=== PATIENT | female | born 1960 | race Caucasian/White ===

== ENCOUNTER → 2017-08-24 07:49 | Outpatient (CLI) | payer OTHER, SELFPAY ==
[2017-08-30 10:15] LABS: HPV APTIMA, High Risk Negative (Negative)
== END ==
PROVIDERS: Family Provider Internal Medicine Infectious Disease; Visit Provider Nurse Practitioner Women's Health
DX: Z12.4 Encounter for screening for malignant neoplasm of cervix (principal)
CPT/HCPCS: 88175; G0145

== ENCOUNTER → 2017-09-07 09:14 | Outpatient (CLI) | payer OTHER, SELFPAY ==
--- NOTE | 2017-09-07 09:17 | BI_ITS ---
MAMMOGRAPHY - BILATERAL SCREENING REASON FOR EXAM: Female, 57 years old. Routine annual screening examination. PERTINENT HISTORY: Grandmother with breast cancer. TECHNIQUE: Digital bilateral breast edita (3D mammographic acquisition) in the CC and MLO projections. 2-D mediolateral oblique (MLO) and craniocaudad (CC) views of both breasts were obtained. CAD: Full Field Digital Mammography with Computer Added Detection was performed. COMPARISON: Comparison is made with prior ocular examination dated July 05, 2016. FINDINGS: Breast Composition: There are scattered areas of fibroglandular density. There are no dominant masses or suspicious calcifications. No other significant abnormalities are identified. There has been no significant change since the prior study. BI/SCREENING MAMM (CAD), BILAT IMPRESSION: Stable bilateral screening mammogram. Yearly follow-up mammogram recommended. (A) ASSESSMENT CATEGORY: BIRADS Category 1: Negative. A letter regarding these results will be sent to the patient by the facility within 30 days. Approximately 10% of breast cancers are not detected by mammography. A normal mammogram should not delay biopsy of a clinically suspicious abnormality. [id number] Electronically Signed: Rodrigo Alves MD at 10:54 EDT Tel [phone], Service support ,
== END ==
PROVIDERS: Family Provider Internal Medicine Infectious Disease; PCP Internal Medicine Infectious Disease; Visit Provider Obstetrics & Gynecology
DX: Z12.31 Encounter for screening mammogram for malignant neoplasm of breast (principal)
CPT/HCPCS: 77063; 77067

== ENCOUNTER → 2018-09-20 | Outpatient (CLI) | payer OTHER, SELFPAY ==
[2017-08-24 08:06] VITALS: BMI 37.5
--- NOTE | 2018-09-20 08:29 | BI_ITS ---
MAMMOGRAPHY - BILATERAL SCREENING 3-D TOMOSYNTHESIS REASON FOR EXAM: Female, 58 years old. Bilateral Screening 3-D tomosynthesis PERTINENT HISTORY: Grandmother with breast cancer.. TECHNIQUE: 2-D mammograms and 3-D Tomosynthesis of the breast (s) were performed. CAD was performed. COMPARISON: 09/07/2017 FINDINGS: The breast composition is composed of scattered fibroglandular density. Scattered benign calcifications are seen. No dense spiculated masses or suspicious microcalcifications are identified. No architectural distortion is identified. There is no skin thickening or retraction. There has been no significant change since the prior study. BI/SCREEN MAMM (CAD) W/MARKY BILAT IMPRESSION: No mammographic signs of malignancy. Routine yearly mammograms recommended. ASSESSMENT CATEGORY: BIRADS Category 2: Benign. A letter regarding these results will be sent to the patient by the facility within 30 days. FOLLOW UP RECOMMENDATION: Yearly follow up mammogram recommended. (A) Approximately 10% of breast cancers are not detected by mammography. A normal mammogram should not delay biopsy of a clinically suspicious abnormality. Electronically Signed: Mauricio Bates MD at 10:52 EDT , Service support ,
== END | disposition home or self-care (01) ==
PROVIDERS: Family Provider Internal Medicine Infectious Disease; PCP Internal Medicine Infectious Disease; Referring Provider Nurse Practitioner Women's Health; Visit Provider Nurse Practitioner Women's Health
DX: Z12.31 Encounter for screening mammogram for malignant neoplasm of breast (principal)
CPT/HCPCS: 77063; 77067

== ENCOUNTER → 2018-10-18 17:06 | Outpatient (CLI) | payer OTHER, SELFPAY ==
--- NOTE | 2018-10-18 | EMB_PTH ---
PATIENT: IMANI HASTINGS LOC: [facility] U#:[id number] AGE/SX: 64/F ROOM: RE10/18/[address]: JOSH Mccarthy : 1960 BED: DIS: SPEC #: [id number] RECD: 10/18/18 16:43 STATUS: ADRIEL JC #: [id number] YAEL: 10/18/18 00:[address]: Sunitha Guaman NP DEPT: SURGICAL PATHOLOGY RECD BY: Prakash Painter ENTERED: 10/22/18 08:26 SP TYPE: ENDOM BX/C JACOB DR: Dr. Jian Preston MD Tissues: Endometrium, NOS Procedures: Surgery Specimen Level IV HEADER OPERATION: Endometrial biopsy PRE-OP DIAGNOSIS: Endometrial biopsy TISSUE SUBMITTED: Endometrial biopsy MICROSCOPIC DIAGNOSIS Endometrium, biopsy: Fragments of proliferative endometrium. AM:acosta 10/23/18 COMMENT Clinical correlation is necessary. MICROSCOPIC DESCRIPTION Slides are reviewed. GROSS DESCRIPTION Received is one container labeled with the patient's name and not further designated. The specimen consists of multiple irregular fragments of light to dark sellers soft tissue that in aggregate measure 2.3 x 1 x 0.1 cm. The specimen is totally submitted in one cassette. / AM:acosta 10/22/18 TC:5 CPT: 40603
[2018-10-18 08:51] VITALS: BMI 38.2
== END ==
PROVIDERS: Family Provider Internal Medicine Infectious Disease; PCP Internal Medicine Infectious Disease; Referring Provider Nurse Practitioner Women's Health; Visit Provider Nurse Practitioner Women's Health
DX: N93.8 Other specified abnormal uterine and vaginal bleeding (principal)
CPT/HCPCS: 88305

== ENCOUNTER → 2019-11-19 08:12 | Outpatient (CLI) | payer OTHER, SELFPAY ==
[2018-10-18 08:51] VITALS: BMI 38.2
--- NOTE | 2019-11-19 08:13 | BI_ITS ---
MAMMOGRAPHY - BILATERAL SCREENING 3-D TOMOSYNTHESIS REASON FOR EXAM: Female, 59 years old. Routine screening PERTINENT HISTORY: BLAT SCREENING - FAM HX OF MAT GRANDMOTHER @ AGE 60''S and amp; PAT GRANDMOTHER @ AGE 60''S - NO PREV VALENTINO G''S - LT AXILLARY SKIN TAG MARKED - PT HAS LOST 36# SINCE LAST MAMM OF 2019 TECHNIQUE: 2-D mammograms and 3-D Tomosynthesis of the breast (s) were performed. CAD was performed. COMPARISON: 09/20/2018 FINDINGS: The breast composition is composed of scattered fibroglandular density. Scattered benign calcifications are seen. No dense spiculated masses or suspicious microcalcifications are identified. No architectural distortion is identified. There is no skin thickening or retraction. There has been no significant change since the prior study. BI/SCREEN MAMM (CAD) W/MARKY BILAT IMPRESSION: No mammographic signs of malignancy. Routine yearly mammograms recommended. ASSESSMENT CATEGORY: BIRADS Category 2: Benign. A letter regarding these results will be sent to the patient by the facility within 30 days. FOLLOW UP RECOMMENDATION: Yearly follow up mammogram recommended. (A) Approximately 10% of breast cancers are not detected by mammography. A normal mammogram should not delay biopsy of a clinically suspicious abnormality. Electronically Signed: Mauricio Bates MD at 9:24 EDT , Service support ,
== END ==
PROVIDERS: PCP Internal Medicine Infectious Disease; Referring Provider Internal Medicine Infectious Disease; Visit Provider Internal Medicine Infectious Disease
DX: Z12.31 Encounter for screening mammogram for malignant neoplasm of breast (principal)
CPT/HCPCS: 77063; 77067

== ENCOUNTER → 2020-11-23 15:44 | Outpatient (CLI) | payer OTHER, SELFPAY ==
[2019-11-19 08:57] VITALS: BMI 38.2
[2020-11-23 15:22] VITALS: BMI 37.1
--- NOTE | 2020-11-23 15:46 | BI_ITS ---
MAMMOGRAPHY - BILATERAL SCREENING REASON FOR EXAM: Female, 60 years old. Routine annual screening examination. PERTINENT HISTORY: Grandmothers with breast cancer. TECHNIQUE: Digital bilateral breast marky (3D mammographic acquisition) in the CC and MLO projections. 2-D mediolateral oblique (MLO) and craniocaudad (CC) views of both breasts were obtained. CAD: Full Field Digital Mammography with Computer Added Detection was performed. COMPARISON: Comparison is made with prior examination dated 11/19/2019 and 09/20/2018. FINDINGS: Breast Composition: There are scattered areas of fibroglandular density. There are no dominant masses or suspicious calcifications. Stable small benign-appearing bilateral axillary lymph nodes. No other significant abnormalities are identified. There has been no significant change since the prior study. BI/SCRN MAMM (CAD)W/MARKY BILAT IMPRESSION: Stable bilateral screening mammogram. Yearly follow-up mammogram recommended. (A) ASSESSMENT CATEGORY: BIRADS Category 2: Benign. A letter regarding these results will be sent to the patient by the facility within 30 days. Approximately 10% of breast cancers are not detected by mammography. A normal mammogram should not delay biopsy of a clinically suspicious abnormality. [id number] Electronically Signed: Rodrigo Alves MD at 8:06 EDT , Service support ,
== END ==
PROVIDERS: Referring Provider Nurse Practitioner Women's Health; Visit Provider Nurse Practitioner Women's Health
DX: Z12.31 Encounter for screening mammogram for malignant neoplasm of breast (principal)
CPT/HCPCS: 77063; 77067

== ENCOUNTER → 2021-11-30 | Outpatient (CLI) | payer OTHER, SELFPAY ==
--- NOTE | 2021-11-30 08:17 | BI_ITS ---
MAMMOGRAPHY - BILATERAL SCREENING REASON FOR EXAM: Female, 61 years old. Routine annual screening examination. PERTINENT HISTORY: Grandmothers with breast cancer. TECHNIQUE: Digital bilateral breast marky (3D mammographic acquisition) in the CC and MLO projections. 2-D mediolateral oblique (MLO) and craniocaudad (CC) views of both breasts were obtained. CAD: Full Field Digital Mammography with Computer Added Detection was performed. COMPARISON: Comparison is made with prior study dated 11/23/2020 and 11/19/2019. FINDINGS: Breast Composition: There are scattered areas of fibroglandular density. There are no dominant masses or suspicious calcifications. Stable small benign-appearing bilateral axillary lymph nodes. No other significant abnormalities are identified. There has been no significant change since the prior study. BI/SCRN MAMM (CAD)W/MARKY BILAT IMPRESSION: Stable bilateral screening mammogram. Yearly follow-up mammogram recommended. (A) ASSESSMENT CATEGORY: BIRADS Category 2: Benign. A letter regarding these results will be sent to the patient by the facility within 30 days. Approximately 10% of breast cancers are not detected by mammography. A normal mammogram should not delay biopsy of a clinically suspicious abnormality. [id number] Electronically Signed: Rodrigo Alves MD at 8:56 EDT ,
== END | disposition home or self-care (01) ==
LOC: OPBI 08:16
PROVIDERS: PCP Internal Medicine Infectious Disease; Referring Provider Obstetrics & Gynecology; Visit Provider Obstetrics & Gynecology
DX: Z12.31 Encounter for screening mammogram for malignant neoplasm of breast (principal)
CPT/HCPCS: 77063; 77067

== ENCOUNTER → 2022-12-06 | Outpatient (CLI) | payer OTHER, SELFPAY ==
--- NOTE | 2022-12-06 09:50 | BI_ITS ---
MAMMOGRAPHY - BILATERAL SCREENING REASON FOR EXAM: Female, 62 years old. Routine annual screening examination. PERTINENT HISTORY: Grandmothers with breast cancer. TECHNIQUE: Digital bilateral breast marky (3D mammographic acquisition) in the CC and MLO projections. 2-D mediolateral oblique (MLO) and craniocaudad (CC) views of both breasts were obtained. CAD: Full Field Digital Mammography with Computer Added Detection was performed. COMPARISON: Comparison is made with prior study dated November 30, 2021 and November 23, 2020. FINDINGS: Breast Composition: There are scattered areas of fibroglandular density. There are no dominant masses or suspicious calcifications. Stable small benign-appearing bilateral axillary lymph nodes. No other significant abnormalities are identified. There has been no significant change since the prior study. BI/SCRN MAMM (CAD)W/MARKY BILAT IMPRESSION: Stable bilateral screening mammogram. Yearly follow-up mammogram recommended. (A) ASSESSMENT CATEGORY: BIRADS Category 2: Benign. A letter regarding these results will be sent to the patient by the facility within 30 days. Approximately 10% of breast cancers are not detected by mammography. A normal mammogram should not delay biopsy of a clinically suspicious abnormality. [id number] Electronically Signed: Rodrigo Alves MD at 10:51 EDT ,
[2022-12-06 10:53] LABS: Estradiol 15.6 pg/mL; Follicle Stimulating Hormone 29.4 mIU/mL
[2022-12-08 22:07] LABS: HPV APTIMA, High Risk Negative (Negative)
== END | disposition home or self-care (01) ==
PROVIDERS: PCP Internal Medicine Infectious Disease; Referring Provider Nurse Practitioner Women's Health; Visit Provider Nurse Practitioner Women's Health
DX: Z12.31 Encounter for screening mammogram for malignant neoplasm of breast (principal); Z80.3 Family history of malignant neoplasm of breast
CPT/HCPCS: 36415; 77063; 77067; 82670; 83001; 87624; 88175; G0145

== ENCOUNTER → 2023-12-13 | Outpatient (CLI) | payer OTHER, SELFPAY ==
--- NOTE | 2023-12-13 09:08 | BI_ITS ---
MAMMOGRAPHY - BILATERAL SCREENING REASON FOR EXAM: Female, 63 years old. Routine annual screening examination. PERTINENT HISTORY: Grandmothers with breast cancer. TECHNIQUE: Digital bilateral breast marky (3D mammographic acquisition) in the CC and MLO projections. 2-D mediolateral oblique (MLO) and craniocaudad (CC) views of both breasts were obtained. CAD: Full Field Digital Mammography with Computer Added Detection was performed. COMPARISON: Comparison is made with prior study dated December 06, 2022 and November 30, 2021. FINDINGS: Breast Composition: There are scattered areas of fibroglandular density. There are no dominant masses or suspicious calcifications. Stable small benign-appearing bilateral axillary lymph nodes. No other significant abnormalities are identified. There has been no significant change since the prior study. BI/SCRN MAMM (CAD)W/MARKY BILAT IMPRESSION: Stable bilateral screening mammogram. Yearly follow-up mammogram recommended. (A) ASSESSMENT CATEGORY: BIRADS Category 2: Benign. A letter regarding these results will be sent to the patient by the facility within 30 days. Approximately 10% of breast cancers are not detected by mammography. A normal mammogram should not delay biopsy of a clinically suspicious abnormality. [id number] Electronically Signed: Rodrigo Alves MD at 10:35 EDT ,
[2023-12-13 15:36] LABS: Estradiol 14.8 pg/mL; Follicle Stimulating Hormone 31.1 mIU/mL
== END | disposition home or self-care (01) ==
PROVIDERS: Nurse Practitioner Family; PCP Internal Medicine Infectious Disease; Referring Provider Nurse Practitioner Women's Health; Visit Provider Nurse Practitioner Women's Health
DX: Z12.31 Encounter for screening mammogram for malignant neoplasm of breast (principal); Z80.3 Family history of malignant neoplasm of breast
CPT/HCPCS: 36415; 77063; 77067; 82670; 83001

== ENCOUNTER 2024-02-12 10:24 | Day surgery (SDC) | payer OTHER, SELFPAY ==
[2024-02-12] VITALS (9 sets, daily range): BP systolic 119–178; BP diastolic 61–90; PULSE 53–71; RESP 16–20; TEMP 36.1–36.8; O2SAT 96–99; BMI 35.6
--- NOTE | 2024-02-12 | EMB_PTH ---
PATIENT: IMANI HASTINGS LOC: [facility] [place] U[place][id number] AGE/SX: 63/F ROOM: RE02/12/[address]: Dr. Jaymie Feliciano MD : 1960 BED: DIS: 02/12/2024 SPEC #: [id number] RECD: 02/12/24 14:16 STATUS: ADRIEL RECheri #: [id number] YAEL: 02/12/24 00:[address]: Jaymie Feliciano DEPT: SURGICAL PATHOLOGY RECD BY: Xander Marks ENTERED: 02/12/24 14:17 SP TYPE: ENDOM BX/C JACOB DR: Dr. Jian Preston MD Tissues: Endometrium, NOS Procedures: Surgery Specimen Level IV HEADER OPERATION: Hysterectomy, D&C PRE-OP DIAGNOSIS: History of postmenopausal bleeding TISSUE SUBMITTED: Endometrial curettings MICROSCOPIC DIAGNOSIS Endometrial curettings: Simple endometrial hyperplasia without atypia. Fragments of myometrium. See comment. SJ.mr 02/13/2024 COMMENT Polypoid fragments of endometrial tissue are noted, may represent fragments of polyp, endometrial hyperplasia is noted most in these fragments. The specimen predominantly consists of fragments of myometrium. Clinical correlation and appropriate follow up are necessary. Case has been reviewed in consultation with Dr. Osborne who concurs with the above diagnosis. IDC:AM MICROSCOPIC DESCRIPTION Slides are reviewed. GROSS DESCRIPTION Received in fixative is one container labeled with the patient's name and designated Endometrial curettings. The specimen consists of multiple fragments of sellers soft tissue measuring in aggregate 4.0 x 3.0 x 0.3cm. The entire specimen is submitted in two cassettes. 02/12/2024 TC:5 CPT:92079
--- NOTE | 2024-02-12 06:24 | HP.PCM_ITS ---
History and Physical Date of Admission: 02/12/24 Intake Vital Signs 12/13/2407:31 12/19/2411:01 01/24/2415:02 Height 5 ft 4 in 5 ft 4 in 5 ft 4 in Weight: 209 lb BMI 35.9 BP 147/71 H Blood Pressure Location Rt brachial Position Sitting Intake Visit Reasons: Surgical consult per Is patient in pain?: No Feel stressed/tense/nervous/anxious/difficulty sleeping: to some extent (works 2 jobs) Allergies No Known Allergies Allergy (Verified 01/25/24 15:02) Medications ?Medication ?Instructions ?Recorded ?Confirmed ?Type aspirin 81 mg chewable tablet PO 08/24/17 01/25/24 History calcium citrate 250 mg PO ONCE 08/24/17 01/25/24 History coenzyme Q10 100 mg capsule 100 mg PO QDAY 08/24/17 01/25/24 History labetalol 200 mg tablet 200 mg PO BID 08/24/17 01/25/24 History lisinopril 5 mg tablet 5 mg PO QDAY 08/24/17 01/25/24 History multivitamin 1 cap PO QAM 08/24/17 01/25/24 History pravastatin 40 mg tablet 40 mg PO QHS 08/24/17 01/25/24 History norethindrone acetate 5 mg tablet 5 mg PO .COMPLEX #10 tabs 12/13/23 01/25/24 Rx Patient : No : No PFSH Medical History (Updated 01/26/24 @ 12:[address] Jaymie Feliciano MD) Hyperlipidemia Hypertension Surgical History (Updated 01/25/24 @ 15:06 by Sunitha Morris) H/O cataract removal with insertion of prosthetic lens H/O: S/P dilation and curettage S/P cholecystectomy Family History Father HypertensionSister Hypertension AneurysmMother Hyperlipidemia Social History (Updated 01/25/24 @ 15:08 by Sunitha Morris) current occupational status: employed current occupation: [employer] Smoking Status: Former smoker alcohol intake: current details: occasionally substance use type: does not use caffeine: Yes what type of physical activity do you participate in: none seatbelt use: always do you feel safe at home: Yes additional social history: - [employer] Patient works [employer] HPI Surgical consult per Details: IMANI HASTINGS is a 63 year old who presents for persistent postmenopausal bleeidng every three months she has a bleed in repsonse to aygestin, never gone a year without menses. she isn't having any bleeding or discharge right now she is doing well no complaints. she denies any pelvic pain or pressure. Female Reproductive History Menopausal Symptoms: No night sweats History 3 Elective abortions Hx Para 2 Spontaneous abortions 1 Hx # Term Pregnancies Ectopic pregnancies Hx # Pregnancies Multiple births 1 # of living children Past Pregnancies Del. Date Name GA/Weeks Outcome Route Bth Weight Infant Gen Labor Lgth Anesthesia Del Locatn Provider FOB Unknown Apoorva and Becki-2004 Unknown 42 weeks jhonathan stillbirth Delivery Date: Last Updated by: Kari Choe First child was stillborn ROS Const Constitutional: Denies fatigue, night sweats, weight gain or weight loss ENT ENT: Reports system reviewed and no additional complaints, except as documented Cardio Card: Denies chest pain Resp Resp: Denies cough or dyspnea GI GI: Reports as per HPI; Denies abdominal pain, constipation, nausea or vomiting : Denies nipple discharge, urinary frequency, urinary incontinence, urinary hesitancy, urinary urgency, vaginal discharge, vaginal dryness, vaginal odor or vaginal pruritus Musc Musc: Denies arthralgias, back pain or muscle weakness Skin Skin/Breast: Denies alopecia, change in hair, dry skin, breast mass, breast pain, breast skin changes or nipple discharge Neuro Neuro: Reports system reviewed and no additional complaints, except as docume nted Psych Psych: Reports system reviewed and no additional complaints, except as documented Endo Endo: Denies cold intolerance, excessive sweating, heat intolerance or polydipsia Khris/Lymph Hematologic/Lymphatic: Denies easy bleeding, Denies easy bruising and Denies lymphadenopathy Exam Const General: cooperative, healthy appearing, comfortable and no acute distress Orientation: alert [facility] Head: normal to inspection and normocephalic Ears: hearing grossly normal bilaterally and external ears normal Nose: external nose normal and nares normal Face and sinus: normal facial exam Neck Neck: normal visual inspection and no lymphadenopathy Thyroid: thyroid normal Chest Chest palpation & inspection: normal inspection of the chest Resp Effort & Inspection: normal respiratory effort Cardio Rate: regular rate GI Inspection: normal to inspection and non-distended Palpation: soft and no hepatosplenomegaly Musc Other: gross motor intact no deficits, full bilateral strength Skin General: no rashes or lesions noted Neuro General: patient alert, patient awake, moves all extremities and no focal motor deficits Motor: muscle tone normal throughout Extrem General: normal to inspection and no pedal edema Psych Appearance: grossly normal Mental Status: mental status grossly normal Affect: normal affect Speech and Movement: speech and movement normal Coding Level of Care Code Off vis,est,level 4 Diagnoses History of postmenopausal bleeding Z87.42 Assessment and Plan Assessment and Plan (1) History of postmenopausal bleeding: Status: Acute Comment: Has been taking Aygestin every 3 months/stop. 2019 EMB prolif lining. FSH Estradiol non PM in 2022. recommend d and c hsyteroscopy Plan After discussing the patient's diagnosis and treatment plan options, patient wishes to proceed with surgical management. I have discussed with the patient the risks, benefits, and alternatives of the procedure which include but are not limited to risks of anesthesia, bleeding, infection, possible damage to bowel, bladder, or surrounding vasculature which could lead to additional surgery to evaluate any complications. Patient agrees to procedure and wishes to proceed. ACOG/uptodate references given for additional information regarding procedure. UPDATE- I have seen the patient and performed any clinically relevant updates to the history and physical exam. Jaymie Feliciano MD
[2024-02-12] MEDS: Lactated Ringers 1,000 ML 15 ML IV (10:54)
--- NOTE | 2024-02-12 11:34 | PCM.PRE.AN2 ---
ASA Classification* ASA Classification ASA Classification: 2 Assessment & Plan Anesthesia* Anesthesia Assessment Anesthesia Assessment: Discussed sedation and/or anesthesia options, risks, benefits, and alternatives with patient/parents/legal guardian/POA. Questions invited. The patient/parents/legal guardian/POA seems to understand and agrees to proceed with anesthesia plan. Reviewed the physical assessment, medical history, allergy history and patient home medications list prior to surgery/procedure/anesthetic and documented any changes. Performed airway and anesthesia risk assessments. Anesthesia Type Anesthesia Type: MAC History Source History Obtained from:: Patient and Chart Anesthesia Focused Assessment* Temperature: 98.2 F Pulse Rate: 55 Blood Pressure: 175/85 Respiratory Rate: 16 Pulse Ox: 98 Oxygen Delivery Method: Room Air Airway Assessment Mouth opens: >3 cm Mallampati Score: I Teeth Condition: Missing (Patient has couple missing teeth. 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 When Was Last Pacemaker Check QUESTION #4 FULL TEXT: You/Your Family Experience fever (hyperthermia) with Anesthesia Last Oral Intake Last Oral intake: Last Oral Intake NPO since 06:00 02/12/24 10:45 Meds taken in AM with sips of Yes 02/12/24 10:45 water? Meds patient instructed to LABETALOL, LISINOPRIL 02/12/24 10:45 take am of surgery Any additional information?: Yes NPO since: 06:00 (Patient had coffee at 6 AM.) PONV PONV - pneumatic systems operator: PONV - pneumatic systems operator Female Yes 02/06/24 08:20 HX of Motion Sickness No 02/06/24 08:20 HX of N/V After Surgery No 02/06/24 08:20 Non-Smoker Yes 02/06/24 08:20 Duration of Surgery greater No 02/06/24 08:20 than 60 minutes Number of Risk Factors 2 02/06/24 08:20 PONV Score Moderate Risk 02/06/24 08:20 Height & Weight Height & Weight: Anesthesia: Height & Weight Height 5 ft 4 in 02/12/24 10:45 Weight: 94.3 kg 02/12/24 10:45 Body Mass Index (BMI) 35.6 02/12/24 10:45 Respiratory Assessment Respiratory Assessment - pneumatic systems operator: Respiratory Tract Infection Hx - pneumatic systems operator Hx Respiratory Tract Infection No 02/06/24 08:20 STOP Sleep Apnea STOP Sleep Apnea - pneumatic systems operator: STOP Sleep Apnea - pneumatic systems operator Hx Hypertension Yes: CONTROLLED WITH MEDS 02/06/24 08:20 Hx Sleep Apnea No 02/06/24 08:20 CPAP BIPAP Do you snore loudly (louder Yes 02/06/24 08:20 than talking or can be heard Do you often feel tired/ Yes 02/06/24 08:20 fatigued/ sleepy during daytime? Has anyone observed you stop No 02/06/24 08:20 breathing during sleep? STOP Results Positive 02/06/24 08:20 QUESTION #5 FULL TEXT : Do you snore loudly (louder than talking or can be heard through closed doors)? Tobacco Use History Tobacco Use History - pneumatic systems operator: Tobacco Use History - pneumatic systems operator Tobacco Use Smoking Status Former smoker 02/06/24 08:20 Hx Tobacco Use No 02/06/24 08:20 Years Smoking Packs Smoked per Day Smoking Cessation Date was No - quit smoking greater 02/06/24 08:20 within the last 15 years than 15 years ago Hx Smoking Cessation Date 05/28/86 02/06/24 08:20 Hx Smoking Cessation No 02/06/24 08:20 Counseling Hematologic Medial History Hematologic Hx - pneumatic systems operator: Hematologic Medical Hx - documentation coordinator Hx of Blood Transfusion No 02/06/24 08:20 Hx of Transfusion in last 3 No 02/06/24 08:20 Months Date of Last Transfusion (if within last 3 months) Ever experience any problems No 02/06/24 08:20 with transfusion(s)? Specify any problems Hx of Preganancy in last 3 No 02/06/24 08:20 Months Nurse Filling Out Transfusion DSCHRIBER 02/06/24 08:20 & Questions: Date: 02/06/24 02/06/24 08:20 Time: 08:22 02/06/24 08:20 Patient unable to answer at this time (ie. confused, unrespo /Reproduction History /Reproductive History - pneumatic systems operator: /Reproductive Hx- pneumatic systems operator Hx Now No 02/06/24 08:20 Gestational Age (in weeks): EDC: Hx Hx Para Hx Section SAB No 02/06/24 08:20 Active Medications Active Medications: Current Medications Generic Name Dose Route Start Last Admin Trade Name Freq PRN Reason Stop Dose Admin Lactated Ringer's 1,000 mls @ 15 mls/hr 02/12/24 10:45 02/12/24 10:54 IV 15 mls/hr .Q48H SHARIFA Administration PFSH Medical History Wears glasses Post-menopausal Alcohol use Restless legs Migraine headache History of diverticulitis Heartburn Former smoker History of stress test History of irregular heartbeat Hyperlipidemia Hypertension Home Medications ?Medication ?Instructions ?Recorded ?Last Taken ?Type aspirin 81 mg chewable tablet 1 tab PO DAILY 08/24/17 02/11/24 History calcium citrate 250 mg PO DAILY 08/24/17 02/11/24 History coenzyme Q10 100 mg capsule 100 mg PO QDAY 08/24/17 02/11/24 History labetalol 200 mg tablet 200 mg PO BID 08/24/17 02/12/24 06:00 History lisinopril 5 mg tablet 5 mg PO QDAY 08/24/17 02/12/24 06:00 History multivitamin 1 cap PO QAM 08/24/17 02/11/24 History pravastatin 40 mg tablet 40 mg PO QHS 08/24/17 02/11/24 History cyclosporine 0.05 % eye drops in a 1 drp ophthalmic (eye) BID 02/06/24 02/11/24 History dropperette peg 400-propylene glycol (PF) 0.4 1 drp EACH EYE DAILY PRN dry eye(s) 02/06/24 02/11/24 History %-0.3 % eye drops in a dropperette (Systane (PF)) Allergy/AdvReac Type Severity Reaction Status Date / Time No Known Allergies Allergy Verified 02/12/24 10:46 Family History Father Hypertension Sister Hypertension Aneurysm Mother Hyperlipidemia Surgical History Hx of colonoscopy Hx of right cataract extraction Hx of left cataract extraction H/O: S/P dilation and curettage S/P cholecystectomy Social History current occupational status: employed current occupation: [employer] Smoking Status: Former smoker alcohol intake: current details: occasionally substance use type: does not use caffeine: Yes what type of physical activity do you participate in: none seatbelt use: always do you feel safe at home: Yes additional social history: - [employer] Patient works [employer] Review of Systems (Anesthesia) ROS Narrative System reviewed and no additional complaints, except as documented.
[2024-02-12] MEDS: Lidocaine 2% (20 ml mdv) 20 ML Vial (12:52)
--- NOTE | 2024-02-12 13:05 | OP.PCM_ITS ---
Problems Associated Problem List Diagnoses (1) History of postmenopausal bleeding: Report of Operation Date of Procedure: 02/12/24 Pre-Operative Diagnosis: see problem list Post-Operative Diagnosis: same Surgery/Procedure Performed:: D&C hysteroscopy using symphion Surgeon: Jaymie Feliciano faculty i on call medical assistant: None Type of Anesthesia: Local MAC Special Medications: none Specimen's removed: EMC, polyp Drains: none Estimated Blood Loss (mL): 50 Fluids Replaced: crystalloid Description of Procedure: Patient was prepped and draped in a normal sterile fashion under MAC anesthesia. A weighted speculum was placed in the vagina and the anterior lip of the cervix was grasped with a single-tooth tenaculum. A paracervical block was placed with 1% lidocaine. Cervix was progressively dilated to allow passage of a 5 mm hysteroscope. The lining was fully visualized and noted to have no gross abnormalities . Uterine sounded to 9 cm. Using the symphion device, Direct visual curettage was performed using the device , and all specimens were sent to pathology. All instruments were removed from the vagina and excellent hemostasis was noted. Patient was awoken and taken to recovery in stable condi tion. Grafts/Implants Used: none Procedure Start Time: 12:50 Procedure Stop Time: 13:02 Complications none Admit VTE Documentation VTE Present on Admission: No VTE Mechan Device Prophylaxis: SCD's Multi Select Codes Urinary/Genital Urinary/Genital CPT Codes: 70016 Hysteroscopy,EMC, Polypectomy
--- NOTE | 2024-02-12 13:06 | PCM.DC ---
Discharge Instructions Diet Discharge Diet: No restrictions Activity Discharge Activity: Return to Normal Activity, May Shower and May Take a Tub Bath (after 1 week) May resume sexual activity in: 1-2 weeks Weight Bearing Status: Weight bearing as tolerated Lifting Restrictions: none Dressing / Incision Call your doctor if you observe: Fever of 101 or Higher, Using more than 1 pad per hour, Shortness of breath and Uncontrolled pain Follow Up Care Please Follow Up With: Jaymie Feliciano MD When: Call [phone] to schedule appointment. Test Results: Test results from this visit will be discussed in further detail at your follow-up appointment, if applicable. Discharge Plan Admission Attending Provider: Jaymie Feliciano Primary Care Provider: Jian Preston Instructions Print Language: Sinhala Discharge Orders/Prescriptions Prescriptions: No Action labetalol 200 mg tablet 200 mg PO BID lisinopril 5 mg tablet 5 mg PO QDAY pravastatin 40 mg tablet 40 mg PO QHS multivitamin capsule 1 cap PO QAM calcium citrate 250 mg calcium tablet 250 mg PO DAILY aspirin 81 mg tablet,chewable 1 tab PO DAILY coenzyme Q10 100 mg capsule 100 mg PO QDAY cyclosporine 0.05 % dropperette 1 drp ophthalmic (eye) BID Systane (PF) 0.4-0.3 % dropperette 1 drp EACH EYE DAILY PRN (Reason: dry eye(s)) Referrals / Follow Up: Jian Preston MD [Primary Care Provider] - Disposition Disposition (needs filled in before D/C Order can be placed): Home, Self Care
--- NOTE | 2024-02-12 13:13 | PCM.POST.ANE ---
Anesthesia: Postop Eval I Current Vital Signs Temperature: 97.1 F Pulse Rate: 71 Blood Pressure: 119/61 Respiratory Rate: 20 Pulse Ox: 96 Oxygen Delivery Method: Room Air Assessment Airway patent: Yes Spontaneous unlabored respirations: Yes Mental status: Awake nausea: No Vomiting: No Anesthesia Complication: No Fluid Hydration Crystalloid volume administer (ml): 500 Total IV fluid infused: 500 Progress Note Anesthesia document: Postop Eval 1 completed: Yes
--- NOTE | 2024-02-12 17:36 | POSTOPAN2_ITS ---
Anesthesia Postop Eval I Sum Postop Eval Completion status Anesthesia document: Postop Eval 1 completed: Yes Anesthesia Postop Eval I Summary Anesthesia Postop Eval I Summary: Anesthesia Postop Eval I: Assessment Summary Airway patent Yes 02/12/24 13:14 [email or web address] Spontaneous unlabored Yes 02/12/24 13:14 [email or web address] respirations Mental status Awake 02/12/24 13:14 [email or web address] nausea No 02/12/24 13:14 [email or web address] Vomiting No 02/12/24 13:14 [email or web address] Anesthesia Postop Eval I: Fluid Summary Crystalloid volume administer 500 02/12/24 13:14 [email or web address] (ml) Colloids volume administered ( ml) Blood Product volume administered (ml) Total IV fluid infused 500 02/12/24 13:14 [email or web address] Anesthesia Postop Eval I: Summary Notes Anesthesia Complication No 02/12/24 13:14 [email or web address] Anesthesia Complication Comment: Post-operative progress note Anesthesia: Postop Eval II Evaluation Mental status: Awake and Calm Pain Level: 1 nausea: No Vomiting: No Complications Anesthesia Complication: No
--- NOTE | 2024-02-12 17:36 | PCM.POSTANE2 ---
Anesthesia Postop Eval I Sum Postop Eval Completion status Anesthesia document: Postop Eval 1 completed: Yes Anesthesia Postop Eval I Summary Anesthesia Postop Eval I Summary: Anesthesia Postop Eval I: Assessment Summary Airway patent Yes 02/12/24 13:14 MUSEUM EXHIBIT [email or web address] Spontaneous unlabored Yes 02/12/24 13:14 MUSEUM EXHIBIT [email or web address] respirations Mental status Awake 02/12/24 13:14 MUSEUM EXHIBIT [email or web address] nausea No 02/12/24 13:14 MUSEUM EXHIBIT [email or web address] Vomiting No 02/12/24 13:14 MUSEUM EXHIBIT [email or web address] Anesthesia Postop Eval I: Fluid Summary Crystalloid volume administer 500 02/12/24 13:14 MUSEUM EXHIBIT TECHNICIAN.JDEF (ml) Colloids volume administered ( ml) Blood Product volume administered (ml) Total IV fluid infused 500 02/12/24 13:14 MUSEUM EXHIBIT [email or web address] Anesthesia Postop Eval I: Summary Notes Anesthesia Complication No 02/12/24 13:14 MUSEUM EXHIBIT [email or web address] Anesthesia Complication Comment: Post-operative progress note Anesthesia: Postop Eval II Evaluation Mental status: Awake and Calm Pain Level: 1 nausea: No Vomiting: No Complications Anesthesia Complication: No
== END 2024-02-12 14:05 | disposition home or self-care (01) ==
LOC: SDC 10:28 → AC 10:30
PROVIDERS: PCP Internal Medicine Infectious Disease; Referring Provider Obstetrics & Gynecology; Visit Provider Obstetrics & Gynecology
PROC: 0UB98ZZ Excision of Uterus, Via Natural or Artificial Opening Endoscopic (ICD-10-PCS; CPT 58558; principal; 2024-02-12 11:40)
DX: N85.01 Benign endometrial hyperplasia (principal); I10 Essential (primary) hypertension; E78.5 Hyperlipidemia, unspecified; Z87.891 Personal history of nicotine dependence; Z87.42 Personal history of other diseases of the female genital tract; Z87.19 Personal history of other diseases of the digestive system
CPT/HCPCS: 58558; 00952; 88305; J7120

== ENCOUNTER → 2024-09-01 | Outpatient (CLI) | payer OTHER, SELFPAY ==
--- NOTE | 2024-09-01 15:50 | EMB_PTH ---
PATIENT: IMANI HASTINGS [facility]: [facility] U#:[id number] AGE/SX: 64/F ROOM: RE09/01/[address]: Dr. Jaymie Feliciano MD : 1960 BED: DIS: 09/01/2024 SPEC #: [id number] RECD: 09/02/24 10:28 STATUS: ADRIEL RECheri #: [id number] YAEL: 09/01/24 15:[address]: Jaymie Feliciano DEPT: SURGICAL PATHOLOGY RECD BY: Raul Randall ENTERED: 09/02/24 10:28 SP TYPE: ENDOM BX/C JACOB DR: Dr. Jian Preston MD Tissues: A - Endometrium, NOS Procedures: Surgery Specimen Level IV HEADER OPERATION: Endometrial biopsy PRE-OP DIAGNOSIS: Simple endometrial hyperplasia without atypia TISSUE SUBMITTED: A- Endometrial tissue MICROSCOPIC DIAGNOSIS A. Uterus, endometrial tissue, biopsy: * Fragments of inactive endometrium with extensive progestin effect. MICROSCOPIC DESCRIPTION Slides are reviewed. GROSS DESCRIPTION A. Received in formalin in a container labeled with the patient's name, date of , and with the accompanying paperwork indicating, endometrial tissue are multiple red-sellers fragments of soft tissue admixed with blood and mucus measuring 1.2 x 0.8 x 0.2 cm in aggregate. Submitted in toto in A1. [facility] 09-02-2024 CPT:[id number]
== END | disposition home or self-care (01) ==
PROVIDERS: PCP Internal Medicine Infectious Disease; Visit Provider Obstetrics & Gynecology
DX: N85.00 Endometrial hyperplasia, unspecified (principal)
CPT/HCPCS: 88305

== ENCOUNTER → 2024-12-17 | Outpatient (CLI) | payer OTHER, SELFPAY ==
--- NOTE | 2024-12-17 13:45 | BI_ITS ---
EXAM: SCRN MAMM (CAD)W/MARKY BILAT DATE: 12/17/2024 CLINICAL HISTORY: F, Age 64 y/o , BREAST CANCER SCREENING TECHNIQUE: SCRN MAMM (CAD)W/MARKY BILAT COMPARISON: Prior exam(s) dated 12/13/2023, 12/06/2022, 11/30/2021. FINDINGS: TISSUE DENSITY: There are scattered areas of fibroglandular density. Bilateral Breast Mammographic Findings: No significant masses, calcifications or other abnormalities are identified. BI/SCRN MAMM (CAD)W/MARKY BILAT IMPRESSION: There is no mammographic evidence of malignancy. OVERALL FINAL ASSESSMENT BI-RADS 1: NEGATIVE. RECOMMENDATION: Routine annual follow-up in 1 Year A letter with findings and recommendations will be mailed to the patient. Reading Location: [id number]
--- OUTSIDE RECORDS SUMMARY | 2024-12-17 20:00 | XMS RPT_ITS | CCD ---
Author Organization [facility] Care Team Providers Care Drum Straightener Name Role Phone Rowena METER TESTER PRIMARY, METER TESTER PRIMARY-C Sunitha Attending Provider Dr. Rosetta Bills Primary Care Provider Dr. Rosetta Bills Referring Provider Dr. Rosetta Bills Primary Care Provider [phone] Dr. Rosetta Bills Referring Provider [phone] Rowena METER TESTER PRIMARY, METER TESTER PRIMARY-C Sunitha Attending Provider [phone] ROBBIE, MOSES PA%C Primary Care Unavailable ROBBIE, MOSES PA%C Attending Unavailable ROBBIE, MOSES PA%C Admitting Unavailable ROSETTA BILLS MD Consulting Unavailable PROVIDER, UNKNOWN Consulting Unavailable PROVIDER, UNKNOWN Consulting Unavailable PROVIDER, UNKNOWN Consulting Unavailable ROBBIE, MOSES PA%C Primary Care Unavailable ROBBIE, MOSES PA%C Attending Unavailable ROBBIE, MOSES PA%C Admitting Unavailable ROSETTA BILLS MD Consulting Unavailable PROVIDER, UNKNOWN Consulting Unavailable PROVIDER, UNKNOWN Consulting Unavailable PROVIDER, UNKNOWN Consulting Unavailable ROSETTA BILLS MD Consulting Unavailable ROSETTA BILLS MD Attending Unavailable ROSETTA BILLS MD Admitting Unavailable ROSETTA BILLS MD Primary Care Unavailable PROVIDER, UNKNOWN Consulting Unavailable PROVIDER, UNKNOWN Consulting Unavailable PROVIDER, UNKNOWN Consulting Unavailable ROSETTA BILLS MD Consulting Unavailable ROBBIE, MOSES PA%C Admitting Unavailable ROBBIE, MOSES PA%C Primary Care Unavailable ROBBIE, MOSES PA%C Attending Unavailable PROVIDER, UNKNOWN Consulting Unavailable PROVIDER, UNKNOWN Consulting Unavailable PROVIDER, UNKNOWN Consulting Unavailable Mohan BAKER, Dr. Villar Primary Care Provider Dr. Rosetta Bills MD Referring Provider Jodie BAKERDr. Coon Attending Provider Jaymie Feliciano Referring Unavailable Omran, Yasser Primary Care Unavailable Jaymie Feliciano Attending Unavailable Jaymie Feliciano Attending Unavailable Omran, Yasser Primary Care Unavailable Rita Leary Referring Unavailable Omran, Yasser Primary Care Unavailable Rita Leary Attending Unavailable Omran, Yasser Referring Unavailable Omran, Yasser Primary Care Unavailable Jaymie Feliciano Attending Unavailable Omran, Yasser Referring Unavailable Omran, Yasser Primary Care Unavailable Jaymie Feliciano Attending Unavailable Rita Leary Attending Unavailable Omran, Yasser Referring Unavailable Omran, Yasser Primary Care Unavailable Omran, Yasser Primary Care Unavailable Jaymie Feliciano Referring Unavailable Jaymie Feliciano Consulting Unavailable Jaymie Feliciano Attending Unavailable Jaymie Feliciano Attending Unavailable Omran, Yasser Primary Care Unavailable Omran, Yasser Referring Unavailable Gibran METER TESTER PRIMARY-CRita Attending Provider [phone] Gibran METER TESTER PRIMARY-CRita Referring Provider [phone] Medications Current Medications Medication Drug Class(es) Dates Sig (Normalized) Sig (Original) aspirin 81 mg chewable tablet (4 sources) Platelet Aggregation Inhibitor, Nonsteroidal Anti-inflammatory Drug Start: 08-24-2017 Aspirin 81 mg tablet,chewable Active 1 {tbl} PO DAILY 0 August 24, 2017 12:00am calcium citrate 1040 mg oral tablet (4 sources) Start: 08-24-2017 take 1 tablet by mouth once daily Calcium Citrate 250 mg calcium tablet Active 250 mg PO DAILY August 24, 2017 12:00am Cyclosporine 0.05 % dropperette (2 sources) Start: 02-06-2024 Cyclosporine 0.05 % dropperette Active 1 NMA OPHTHALMIC TWICE A DAY February 06, 2024 12:00am labetalol hydrochloride 200 mg oral tablet (4 sources) beta-Adrenergic Derick Start: 08-24-2017 take 1 tablet by mouth twice daily Labetalol 200 mg tablet Active 200 mg PO TWICE A DAY August 24, 2017 12:00am lisinopril 5 mg oral tablet (4 sources) Angiotensin Converting Enzyme Inhibitor Start: 08-24-2017 take 1 tablet by mouth once daily Lisinopril 5 mg tablet Active 5 mg PO daily August 24, 2017 12:00am megestrol acetate 40 mg oral tablet (4 sources) Progestin Start: 02-25-2024 End: 08-13-2024 take 1 tablet by mouth once daily Megestrol 40 mg tablet Active 40 mg PO DAILY 30 August 13, 2024 4:31pm multivitamin capsule (2 sources) Start: 08-24-2017 take 1 capsule by mouth once daily in the morning multivitamin capsule Active 1 CAP PO EVERY MORNING August 24, 2017 12:00am Multivitamin capsule (2 sources) Start: 08-24-2017 Multivitamin capsule Active 1 NMA PO EVERY MORNING August 24, 2017 12:00am polyethylene glycol 400 4 mg/ml / propylene glycol 3 mg/ml ophthalmic solution (2 sources) Start: 02-06-2024 Peg 400-Propylene Glycol (Pf) (Systane (Pf)) 0.4-0.3 % dropperette Active 1 NMA EACH EYE DAILY as needed for dry eye(s) February 06, 2024 12:00am pravastatin sodium 40 mg oral tablet (4 sources) HMG-CoA Reductase Inhibitor Start: 08-24-2017 take 1 tablet by mouth at bedtime Pravastatin 40 mg tablet Active 40 mg PO AT BEDTIME August 24, 2017 12:00am ubidecarenone 100 mg oral capsule (4 sources) Start: 08-24-2017 take 10 capsules by mouth once daily Coenzyme Q10 100 mg capsule Active 100 mg PO daily August 24, 2017 12:00am Completed/Discontinued Medications Medication Drug Class(es) Dates Sig (Normalized) Sig (Original) norethindrone acetate 5 mg oral tablet (20 sources) Start: 08-24-2017 End: 02-06-2024 Norethindrone Acetate 5 mg tablet Discontinued 5 mg PO .COMPLEX 10 4 December 06, 2022 10:56am December 13, 2023 9:22am 5 mg PO take for 10 days if no menses X 3 months Problems Active Problems Problem Classification Problem Date Documented Date Episodic/Chronic Diabetes mellitus without complication (2 sources) Prediabetes; Translations: [Hyperglycemia, unspecified] Onset: 01-31-2024 Episodic Disorders of lipid metabolism (6 sources) Hyperlipidemia; Translations: [Hyperlipidemia, unspecified] Onset: 01-31-2024 08-24-2017 Chronic Comment on above: ON MED Diverticulosis and diverticulitis (4 sources) Diverticulitis; Translations: [Diverticulitis of intestine, part unspecified, without perforation or abscess without bleeding] 09-20-2018 Chronic Essential hypertension (6 sources) Hypertensive disorder; Translations: [Essential (primary) hypertension] Onset: 01-31-2024 08-24-2017 Chronic Comment on above: CONTROLLED WITH MEDS Other female genital disorders (4 sources) Simple endometrial glandular hyperplasia without atypia; Translations: [Benign endometrial hyperplasia] 09-03-2024 Chronic Comment on above: if hyperplasia resol shlomo stop megacea nd repeat biopsy in 6 months Other female genital disorders (1 source) Endometrial hyperplasia, unspecified; Translations: [Endometrial hyperplasia, unspecified] Onset: 09-04-2024 Chronic Other female genital disorders (4 sources) H/O: postmenopausal bleeding; Translations: [Personal history of other diseases of the female genital tract] 12-06-2022 Episodic Comment on above: Has been taking Ayge stin every 3 months/stop. 2018 EMB prolif lining. FSH Estradiol non PM in 2022. recommend d and c hsyteroscopy Other screening for suspected conditions (not mental disorders or infectious disease) (1 source) Encounter for screening mammogram for malignant neoplasm of breast; Translations: [Encounter for screening mammogram for malignant neoplasm of breast] Onset: 12-15-2024 Episodic Past or Other Problems Problem Classification Problem Date Documented Da te Episodic/Chronic Other female genital disorders (3 sources) Personal history of other diseases of the female genital tract; Translations: [Personal history of other genital system and obstetric disorders] Onset: 02-12-2024 Episodic Results Test Name Value Interpretation Reference Range Facility 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 Jaymie desai MD Age/Sex: 64/F [place] [facility] [place]: Signed Intake Vital Signs 02/25/24 15:50 02/25/24 16:06 09/01/24 15:23 Height 5 ft 4 in 5 ft 4 in 5 ft 4 in Weight: 210 lb 4 oz BMI 36.1 BP 154/76 H Intake Visit Reasons: emb Restaurant Lead Required: No Is patient in pain?: No Allergies No Known Allergies Allergy (Verified 09/01/24 15:24) Medications ???Medication ???Instructions ???Recorded ???Confirmed ???Type aspirin 81 mg chewable tablet 1 tab PO DAILY 08/24/17 09/01/24 H istory calcium citrate 250 mg PO DAILY 08/24/17 09/01/24 History coenzyme Q10 100 mg capsule 100 mg PO QDAY 08/24/17 09/01/24 H istory labetalol 200 mg tablet 200 mg PO BID 08/24/17 09/01/24 Hi story lisinopril 5 mg tablet 5 mg PO QDAY 08/24/17 09/01/24 His tory multivitamin 1 cap PO QAM 08/24/17 09/01/24 His tory pravastatin 40 mg tablet 40 mg PO QHS 08/24/17 09/01/24 His tory cyclosporine 0.05 % eye drops in a 1 drp ophthalmic (eye) BID 02/0509/01/24 History dropperette peg 400-propylene glycol (PF) 0.4 1 drp EACH EYE DAILY PRN dry eye( s) 02/06/24 09/01/24 History %-0.3 % eye drops in a dropperette (Systane (PF)) megestrol 40 mg tablet 40 mg PO DAILY #30 tabs 08/13/24 0 09/01/24 Rx Is last menstrual period known: No Post menopausal: Yes Patient : No : No PFSH PFSH Medical History Wears glasses Post-menopausal Alcohol use Restless legs Migraine headache History of diverticulitis Heartburn Former smoker History of stress test History of irregular heartbeat Hyperlipidemia Hypertension Surgical History Hx of colonoscopy Hx of right cataract extraction Hx of left cataract extraction H/O: S/P dilation and curettage S/P cholecystectomy Family History Father Hypertension Sister Hypertension Aneurysm Mother Hyperlipidemia Social History current occupational status: employed current occupation: [employer] Smoking Status: Former smoker alcohol intake: current details: occasionally substance use type: does not use caffeine: Yes what type of physical activity do you participate in: none seatbelt use: always do you feel safe at home: Yes additional social history: - [employer] 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 Date Name GA/Weeks Outcome Route Bth Weight Infant Gen Labor Lgth Anesthesia Del Locatn Provider FOB Unknown Apoorva and Becki-2004 Unknown 42 weeks jhonathan stillbirth Delivery Date: Last Updated by: Kari Choe First child was stillborn HPI emb Details: IMANI HASTINGS is a 64 year old who presents for follow up of hyperplasia. she denie snay bleeding or signficiant crmaping, caal sbeen on megace without complication, tolerated well. ROS Const Constitutional: Reports system reviewed and no additional complaints, except as documented; Denies chills, fever(s), weight gain or weight loss GI GI: Reports as per HPI; Denies abdominal pain, bloating, constipation, cramping, nausea or vomiting : Reports as per HPI; Denies urinary frequency or urinary urgency Exam Const General: cooperative, healthy appearing, comfortable and well developed Orientation: alert HENMT Head: normal to inspection Resp Effort Inspection: normal respiratory effort GI Inspection: normal to inspection and non-distended Palpation: soft, no hepatosplenomegaly and no guarding External Female Exam: normal external appearance and normal appearance of the urethra Urethra: normal appearance of the urethra Speculum Exam - Vagina: normal appearance of the vagina, normal vaginal discharge and no lesions Speculum Exam - Cervix: normal appearance of the cervix and nontender Bimanual Exam- Vagina Uterus: No tender Coding Level of Care Code Off vis,est,level 3 Diagnoses Simple endometrial hyperplasia without atypia N85.01 Assessment and Plan Assessment and Plan (1) Simple endometrial hyperplasia without atypia: Status: Acute Comment: if hyperplasia resolved stop megacea nd repeat biopsy in 6 months O (more content not included)... Normal [facility] Surgery Specimen Level Leroy 09-01-2024 Surgery Specimen Level IV ---- Patient Age/Sex Location Account Attending Physician ---- IMANI HASTINGS 64/F LABSPEC [id number] Dr. Jaymie Feliciano MD ---- Specimen: [id number] Received: 09/02/24 Status: ADRIEL Lemus Num: [id number] Spec Type: ENDOM BX/C Subm Dr: Dr. Jaymie Feliciano MD HEADER OPERATION: Endometrial biopsy PRE-OP DIAGNOSIS: Simple endometrial hyperplasia without atypia TISSUE SUBMITTED: A- Endometrial tissue ---- MICROSCOPIC DIAGNOSIS A. Uterus, endometrial tissue, biopsy: * Fragments of inactive endometrium with extensive progestin effect. MICROSCOPIC DESCRIPTION Slides are reviewed. GROSS DESCRIPTION A. Received in formalin in a container labeled with the patient's name, date of , and with the accompanying paperwork indicating, endometrial tissue are multiple red-sellers fragments of soft tissue admixed with blood and mucus measuring 1.2 x 0.8 x 0.2 cm in aggregate. Submitted in toto in A1. [facility] 09-02-2024 [id number] ---- Patient Age/Sex Location Account Attending Physician ---- IMANI HASTINGS 64/F LABSPEC [id number] Dr. Jaymie Feliciano MD ---- Signed (signature on file) Dr. Marli Grace MD 09/11/24 1543 ---- Normal [facility] Comment on above: Performed By: #### P SUIV #### [facility] Laboratory [address] [place], [place], [id number] LIPID PROFILEon 07-24-[address] [facility] Comment on above: Result Comment: APPENDED REPORT LIPID PROFILE SEE SEPERATE REPORT Performed By: #### 2 [id number] #### [facility],[address] [place] [address]66 CMP with eGFRon 07-23-2024 AGE 63 years Normal [facility] Comment on above: Performed By: #### 2 [id number] #### [facility],[address] [place] [address] 76850 Albumin [Mass/Vol] 3.9 g/dL Normal 3.4 - 5.0 [facility] Comment on above: Performed By: #### 2 80963 #### [facility],[address] [place] [address] 36620 Albumin/Globulin [Mass ratio] 1.1 {ratio} Normal 0.9 - 1.6 [facility] Comment on above: Performed By: #### 2 20816 #### [facility],[address] [place] [address] 15256 ALK PHOS 68 U/L Normal 46 - 116 [facility] Comment on above: Performed By: #### 2 45439 #### [facility],[address] [place] [address] 73061 ALT [Catalytic activity/Vol] 30 U/L Normal 16 - 63 [facility] Comment on above: Performed By: #### 2 08885 #### [facility],[address] [place] [address] 51031 Anion gap [Moles/Vol] 14 mmol/L Normal 10 - 20 [facility] Comment on above: Performed By: #### 2 46522 #### [facility],[address] [place] [address] AST [Catalytic activity/Vol] 11 U/L Low 13 - 39 [facility] Comment on above: Performed By: #### 2 81585 #### [facility],[address] [place] [address] B/C RATIO 11 ratio Normal 0 - 30 [facility] Comment on above: Performed By: #### 2 18094 #### [facility],[address] [place], [place] [id number] Bilirubin [Mass/Vol] 0.7 mg/dL Normal 0.2 - 1.0 [facility] Comment on above: Performed By: #### 2 75109 #### [facility],[address] [place], [place] [id number] Calcium [Mass/Vol] 9.7 mg/dL Normal 8.5 - 10.1 [facility] Comment on above: Performed By: #### 2 26347 #### [facility],[address] [place], [place] [id number] Chloride [Moles/Vol] 105 mmol/L Normal 98 - 107 [facility] Comment on above: Performed By: #### 2 05454 #### [facility],[address] [place], [place] [id number] CMP with eGFR Normal [facility] Comment on above: Result Comment: COMP REHENSIVE METABOLIC PANEL Performed By: #### 2 60355 #### [facility],[address] [place] [address] 23295 CO2 [Moles/Vol] 24.4 mmol/L Normal 21.0 - 32.0 [facility] Comment on above: Performed By: #### 2 83724 #### [facility],[address] [place] [address] 10564 Creatinine [Mass/Vol] 0.88 mg/dL Normal 0.55 - 1.02 [facility] Comment on above: Performed By: #### 2 75980 #### [facility],[address] [place], [place] [id number] GFR/1.73 sq M.predicted among non-blacks MDRD (S/P/Bld) [Vol rate/Area] mL/min/{1.73_m2} Normal 60 - 999 [facility] Comment on above: Performed By: #### 2 25233 #### [facility],[address] [place] [address] Result Comment: ACCO RDING TO THE NATIONAL KIDNEY DISEASE EDUCATION PROGRAM(NKDE), A NORMAL eGFR IS A VALUE GREATER THAN OR EQUAL TO 60 ML/MIN/1.73 SQ METERS. CHRONIC KIDNEY DISEASE: <60mL/MIN/1.73 SQ METERS KIDNEY FAILURE: <15mL/MIN/1.73 SQ METERS THIS TEST SHOULD ONLY BE USED FOR PATIENTS 18 YEARS OF AGE AND OLDER. Globulin (S) [Mass/Vol] 3.6 g/dL Normal 1.5 - 3.8 [facility] Comment on above: Performed By: #### 2 54968 #### [facility],[address] [place] [address] 59777 Glucose [Mass/Vol] 106 mg/dL Normal 74 - 106 [facility] Comment on above: Performed By: #### 2 12697 #### [facility],[address] [place] [address] 35447 Potassium [Moles/Vol] 4.1 mmol/L Normal 3.5 - 5.1 [facility] Comment on above: Performed By: #### 2 78393 #### [facility],[address] [place] [address] 24652 Protein [Mass/Vol] 7.5 g/dL Normal 6.4 - 8.2 [facility] Comment on above: Performed By: #### 2 21695 #### [facility],[address] [place] [address] 98624 Sodium [Moles/Vol] 139 mmol/L Normal 136 - 145 [facility] Comment on above: Performed By: #### 2 72415 #### [facility],[address] [place] [address] 39216 Urea nitrogen [Mass/Vol] 10 mg/dL Normal 7 - 18 [facility] Comment on above: Performed By: #### 2 11537 #### [facility],[address] [place] [address] 77551 HEMOGLOBIN A1C (POM)on 07-23 Glucose [Mass/Vol] 125.5 mg/dL High 0.0 - 0.0 [facility] Comment on above: Result Comment: BLDo HEMOGLOBIN A1C REFERENCE RANGESBLDo Suggested Diagnosis HbA1c(%) HbA1C (mmol/mol Diabetic >/=6.5 >/=48 Prediabetes 5.7 - 6.4 39 - 47 Normal <5.7 <39 Performed By: #### 2 06322 #### [facility],[address] [place] [address] 22759 HbA1c (Bld) [Mass fraction] 6.0 % Normal 0.0 - 6.5 [facility] Comment on above: Performed By: #### 2 90188 #### [facility],[address] [place] [address] 37842 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 Jaymie desai MD Age/Sex: 63/F [place] [facility] [place]: Signed Intake Vital Signs 01/25/24 15:02 02/12/24 10:45 02/25/24 15:47 02/25/24 15:50 Height 5 ft 4 in 5 ft 4 in 5 ft 4 in 5 ft 4 in Weight: 212 lb BMI 36.3 BP 144/83 H Intake Visit Reasons: 2 wk D C possible symphion Restaurant Lead Required: No Is patient in pain?: No Allergies No Known Allergies Allergy (Verified 02/25/24 15:49) Medications ???Medication ???Instructions ???Recorded ???Confirmed ???Type aspirin 81 mg chewable tablet 1 tab PO DAILY 08/24/17 02/25/24 History calcium citrate 250 mg PO DAILY 08/24/17 02/25/24 History coenzyme Q10 100 mg capsule 100 mg PO QDAY 08/24/17 02/25/24 History labetalol 200 mg tablet 200 mg PO BID 08/24/17 02/25/24 History lisinopril 5 mg tablet 5 mg PO QDAY 08/24/17 02/25/24 History multivitamin 1 cap PO QAM 08/24/17 02/25/24 History pravastatin 40 mg tablet 40 mg PO QHS 08/24/17 02/25/24 History cyclosporine 0.05 % eye drops in a 1 drp ophthalmic (eye) BID 02/06/24 02/25/24 History dropperette peg 400-propylene glycol (PF) 0.4 1 drp EACH EYE DAILY PRN dry eye(s) 02/06/24 02/25/24 History %-0.3 % eye drops in a dropperette (Systane (PF)) megestrol 40 mg tablet 40 mg PO DAILY #30 tabs 02/25/24 02/25/24 Rx Is last menstrual period known: No Post menopausal: Yes Patient : No : No PFSH Medical History Wears glasses Post-menopausal Alcohol use Restless legs Migraine headache History of diverticulitis Heartburn Former smoker History of stress test History of irregular heartbeat Hyperlipidemia Hypertension Surgical History Hx of colonoscopy Hx of right cataract extraction Hx of left cataract extraction H/O: S/P dilation and curettage S/P cholecystectomy Family History Father Hypertension Sister Hypertension Aneurysm Mother Hyperlipidemia Social History current occupational status: employed current occupation: [employer] Smoking Status: Former smoker alcohol intake: current details: occasionally substance use type: does not use caffeine: Yes what type of physical activity do you participate in: none seatbelt use: always do you feel safe at home: Yes 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 History 3 Elective abortions Hx Para 2 Spontaneous abortions 1 Hx # Term Pregnancies Ectopic pregnancies Hx # Pregnancies Multiple births 1 # of living children Past Pregnancies Del. Date Name GA/Weeks Outcome Route Bth Weight Gen Labor Lgth Anesthesia Del [facility] Provider FOB Unknown Apoorva and Becki-2004 Unknown 42 weeks jhonathan stillbirth Delivery Date: Last Updated by: Kari Choe First child was stillborn ROS Const Constitutional: Reports system reviewed and no additional complaints, except as documented GI GI: Denies abdominal pain, cramping, nausea or vomiting : Denies pelvic pain, urinary frequency, urinary incontinence, urinary urgency, vaginal discharge, vaginal dryness or vaginal odor Exam Const General: cooperative, healthy appearing, comfortable and no acute distress GI Inspection: normal to inspection Palpation: soft and nontender Coding Level of Care Code Off vis,est,level 4 Diagnoses Simple endometrial hyperplasia without atypia N85.01 Assessment and Plan Assessment and Plan (1) Simple endometrial hyperplasia without atypia: Status: Acute Comment: discussed options plan 6 months of megace, fu with emb Medications: New megestrol 40 mg PO DAILY 30 tabs 5RF Plan discussed therapy plan fu in 6 months discussed options. 02/25/24 1704 Date Jaymie Feliciano MD [facility] Signature: Date (if applicable) CC: Normal [facility] Discharge Instructionon 01-26 Discharge Instruction [facility] Medical Records Department [address] [place] [address] Instructions for Home/Discharge Instructions 02/12/24 1306 MR#: [id number] Acct: [id number] Name: IMANI HASTINGS Rep #: [id number] : 1960 63 From: Jaymie Feliciano MD PCP: Dr. Rosetta Bills MD [place] [place] Instructions Diet Discharge Diet: No restrictions Activity Discharge Activity: Return to Normal Activity, May Shower and May Take a Tub Bath (after 1 week) May resume sexual activity in: 1-2 weeks Weight Bearing Status: Weight bearing as tolerated Lifting Restrictions: none Dressing / Incision Call your doctor if you observe: Fever of 101 or Higher, Using more than 1 pad per hour, Shortness of breath and Uncontrolled pain Follow Up Care Please Follow Up With: Jaymie Feliciano MD When: Call [phone] to schedule appointment. Test Results: Test results from this visit will be discussed in further detail at your follow-up appointment, if applicable. Discharge Plan Admission Attending Provider: Jaymie Feliciano Primary Care Provider: Rosetta Bills Instructions Print Language: Georgian Discharge Orders/Prescriptions Prescriptions: No Action labetalol 200 mg tablet 200 mg PO BID lisinopril 5 mg tablet 5 mg PO QDAY pravastatin 40 mg tablet 40 mg PO QHS multivitamin capsule 1 cap PO QAM calcium citrate 250 mg calcium tablet 250 mg PO DAILY aspirin 81 mg tablet,chewable 1 tab PO DAILY coenzyme Q10 100 mg capsule 100 mg PO QDAY cyclosporine 0.05 % dropperette 1 drp ophthalmic (eye) BID Systane (PF) 0.4-0.3 % dropperette 1 drp EACH EYE DAILY PRN (Reason: dry eye(s)) Referrals / Follow Up: Rosetta Bills MD [Primary Care Provider] - Disposition Disposition (needs filled in before D/C Order can be placed): Home, Self Care 02/12/24 1306 Jaymie Feliciano MD CC: Dr. Rosetta Bills MD Signed [facility] MR/POSTOP.ANEon 02-12-2024 MR/POSTOP.[facility] Medical Records Department [address] [place] [address] Anesthesia Postop Eval I 02/12/24 1313 MR#: [id number] Acct: [id number] Name: IMANI HASTINGS Rep #: [id number] : 1960 63 From: Hailey Valencia CRNA PCP: Dr. Rosetta Bills MD Status:REG [facility] [place]: C Location: [place] [address] Anesthesia: Postop Eval I Current Vital Signs Temperature: 97.1 F Pulse Rate: 71 Blood Pressure: 119/61 Respiratory Rate: 20 Pulse Ox: 96 Oxygen Delivery Method: Room Air Assessment Airway patent: Yes Spontaneous unlabored respirations: Yes Mental status: Awake nausea: No Vomiting: No Anesthesia Complication: No Fluid Hydration Crystalloid volume administer (ml): 500 Total IV fluid infused: 500 Progress Note Anesthesia document: Postop Eval 1 completed: Yes 02/12/24 131 Date Hailey Valencia MEMBERSHIP ASSISTANT Cosigner Signature: Date CC: Signed [facility] MR/[id number] 02-12-2024 MR/POSTOPAN2 [facility] Medical Records Department [address] [place] [address] Anesthesia Postop Eval II 02/12/24 1736 MR#: [id number] Acct: [id number] Name: IMANI HASTINGS Rep #: [id number] : 1960 63 From: Burke Yoo MD PCP: Dr. Rosetta Bills MD Status:[place] [facility] [place]: C Location: [facility] [place]esthesia Postop Eval I Sum Postop Eval Completion status Anesthesia document: Postop Eval 1 completed: Yes Anesthesia Postop Eval I Summary Anesthesia Postop Eval I Summary: Anesthesia Postop Eval I: Assessment Summary Airway patent Yes 02/12/24 13:14 MEMBERSHIP ASSISTANT.JDEF Spontaneous unlabored Yes 02/12/24 13:14 MEMBERSHIP ASSISTANT.JDEF respirations Mental status Awake 02/12/24 13:14 MEMBERSHIP ASSISTANT.JDEF nausea No 02/12/24 13:14 MEMBERSHIP ASSISTANT.JDEF Vomiting No 02/12/24 13:14 MEMBERSHIP ASSISTANT.JDEF Anesthesia Postop Eval I: Fluid Summary Crystalloid volume administer 500 02/12/24 13:14 MEMBERSHIP ASSISTANT.JDEF (ml) Colloids volume administered ( ml) Blood Product volume administered (ml) Total IV fluid infused 500 02/12/24 13:14 MEMBERSHIP ASSISTANT.JDEF Anesthesia Postop Eval I: Summary Notes Anesthesia Complication No 02/12/24 13:14 MEMBERSHIP ASSISTANT.JDEF Anesthesia Complication Comment: Post-operative progress note Anesthesia: Postop Eval II Evaluation Mental status: Awake and Calm Pain Level: 1 nausea: No Vomiting: No Complications Anesthesia Complication: No 02/12/24 1737 Date Burke Yoo MD Cosigner Signature: Date CC: Signed Normal [facility] Operative Reporton 4 Operative Report [facility] Medical Records Department [address] [place] [address] Operative Report 02/12/24 1305 MR#: [id number] Acct: [id number] Name: IMANI HASTINGSN Rep #: [id number] : 1960 63 From: Jaymie Feliciano MD PCP: Dr. Rosetta Bills MD Status:[place] [facility] [place]: [place] [address] Problems Associated Problem List Diagnoses (1) History of postmenopausal bleeding: Report of Operation Date of Procedure: 02/12/24 Pre-Operative Diagnosis: see problem list Post-Operative Diagnosis: same Surgery/Procedure Performed:: D C hysteroscopy using symphion Surgeon: Jaymie Feliciano access lead: None Type of Anesthesia: Local MAC Special Medications: none Specimen's removed: EMC, polyp Drains: none Estimated Blood Loss (mL): 50 Fluids Replaced: crystalloid Description of Procedure: Patient was prepped and draped in a normal sterile fashion under MAC anesthesia. A weighted speculum was placed in the vagina and the anterior lip of the cervix was grasped with a single-tooth tenaculum. A paracervical block was placed with 1% lidocaine. Cervix was progressively dilated to allow passage of a 5 mm hysteroscope. The lining was fully visualized and noted to have no gross abnormalities . Uterine sounded to 9 cm. Using the symphion device, Direct visual curettage was performed using the device , and all specimens were sent to pathology. All instruments were removed from the vagina and excellent hemostasis was noted. Patient was awoken and taken to recovery in stable condition. Grafts/Implants Used: none Procedure Start Time: 12:50 Procedure Stop Time: 13:02 Complications none Admit VTE Documentation VTE Present on Admission: No VTE Mechan Device Prophylaxis: SCD's Multi Select Codes Urinary/Genital Urinary/Genital CPT Codes: 96309 Hysteroscopy,EMC, Polypectomy 02/12/24 1306 Cosigner Signature (if applicable): CC: Dr. Jaymie Feliciano MD; Dr. Rosetta Bills MD Signed Normal [facility] Surgery Specimen Level Leroy 02-12-2024 Surgery Specimen Level IV ---- Patient Age/Sex Location Account Attending Physician ---- VENKATAIMANIN 63/F [facility] [id number] Dr. Jaymie Feliciano MD ---- Specimen: [id number] Received: 02/12/24 Status: ADRIEL Lemus Num: [id number] Spec Type: ENDOM BX/C Subm Dr: Dr. Jaymie Feliciano MD HEADER OPERATION: Hysterectomy, D C PRE-OP DIAGNOSIS: History of postmenopausal bleeding TISSUE SUBMITTED: Endometrial curettings ---- MICROSCOPIC DIAGNOSIS Endometrial curettings: Simple endometrial hyperplasia without atypia. Fragments of myometrium. See comment. SJ.mr 02/13/2024 COMMENT Polypoid fragments of endometrial tissue are noted, may represent fragments of polyp, endometrial hyperplasia is noted most in these fragments. The specimen predominantly consists of fragments of myometrium. Clinical correlation and appropriate follow up are necessary. Case has been reviewed in consultation with Dr. Osborne who concurs with the above diagnosis. IDC:AM MICROSCOPIC DESCRIPTION Slides are reviewed. GROSS DESCRIPTION Received in fixative is one container labeled with the patient's name and designated Endometrial curettings." The specimen consists of multiple fragments of sellers soft tissue measuring in aggregate 4.0 x 3.0 x 0.3cm. The entire specimen is submitted in two cassettes. 02/12/2024 TC:5 CPT:47857 ---- Patient Age/Sex Location Account Attending Physician ---- IMANI HASTINGS 63/F [facility] [id number] Dr. Jaymie Feliciano MD ---- Signed (signature on file) Dr. Terrence Sy MD 02/13/24 1322 ---- [facility] Comment on above: Performed By: #### P SUIV #### [facility] [address] [place], [place], [id number] CBC (NO DIFF)on 01-31-2024 CBC panel Auto (Bld) Normal [facility] Comment on above: Result Comment: CBC( WITHOUT DIFFERENTIAL) Performed By: #### 2 07106 #### [facility],[address] [place] [address] 01082 Erythrocyte distribution width (RBC) [Ratio] 13.8 % Normal 12.0 - 15.6 [facility] Comment on above: Performed By: #### 2 63613 #### [facility],[address] [place] [address] 49286 Hematocrit (Bld) [Volume fraction] 39.8 % Normal 34.0 - 46.0 [facility] Comment on above: Performed By: #### 2 35003 #### [facility],[address] [place] [address] 94550 Hemoglobin (Bld) [Mass/Vol] 13.5 g/dL Normal 12.0 - 16.0 [facility] Comment on above: Performed By: #### 2 93865 #### [facility],[address] [place] [address] 16146 MCH (RBC) [Entitic mass] 29 pg Normal 27 - 33 [facility] Comment on above: Performed By: #### 2 56409 #### [facility],[address] [place] [address] 68029 MCHC 34 X10 3 Normal 32 - 36 [facility] Comment on above: Performed By: #### 2 69492 #### [facility],[address] [place] [address] 42498 MCV (RBC) [Entitic vol] 85 fL Normal 80 - 99 [facility] Comment on above: Performed By: #### 2 26498 #### [facility],[address] [place] [address] 52870 PLATELET 250 x10EE3/UL Normal 150 - 450 [facility] Comment on above: Performed By: #### 2 58938 #### [facility],[address] [place] [address] 78324 Platelet mean volume (Bld) [Entitic vol] 7.9 fL Normal 6.6 - 10.5 [facility] Comment on above: Performed By: #### 2 39106 #### [facility],[address] [place] [address] 39055 RBC 4.70 x 10EE6/UL Normal 4.10 - 5.30 [facility] Comment on above: Performed By: #### 2 42882 #### [facility],[address] [place] [address] 43832 WBC 6.7 x 10EE3/UL Normal 4.5 - 10.8 [facility] Comment on above: Performed By: #### 2 60779 #### [facility],[address] [place] [address] 48725 CMP with eGFRon 01-31-2024 AGE 63 years Normal [facility] Comment on above: Performed By: #### 2 36006 #### [facility],[address] [place] [address] 26165 Albumin [Mass/Vol] 4.0 g/dL Normal 3.4 - 5.0 [facility] Comment on above: Performed By: #### 2 51758 #### [facility],[address] [place] [address] 08611 Albumin/Globulin [Mass ratio] 1.1 {ratio} Normal 0.9 - 1.6 [facility] Comment on above: Performed By: #### 2 18625 #### [facility],[address] [place] [address] 22329 ALK PHOS 63 U/L Normal 46 - 116 [facility] Comment on above: Performed By: #### 2 23432 #### [facility],[address] [place] [address] 44666 ALT [Catalytic activity/Vol] 41 U/L Normal 16 - 63 [facility] Comment on above: Performed By: #### 2 68820 #### [facility],[address] [place] [address] 62395 Anion gap [Moles/Vol] 14 mmol/L Normal 10 - 20 [facility] Comment on above: Performed By: #### 2 11077 #### [facility],[address] [place] [address] 54314 AST [Catalytic activity/Vol] 23 U/L Normal 13 - 39 [facility] Comment on above: Performed By: #### 2 47346 #### [facility],[address] [place] [address] 60363 B/C RATIO 16 ratio Normal 0 - 30 [facility] Comment on above: Performed By: #### 2 20584 #### [facility],[address] [place] [address] 10880 Bilirubin [Mass/Vol] 0.6 mg/dL Normal 0.2 - 1.0 [facility] Comment on above: Performed By: #### 2 37810 #### [facility],[address] [place] [address] 29181 Calcium [Mass/Vol] 9.5 mg/dL Normal 8.5 - 10.1 [facility] Comment on above: Performed By: #### 2 47852 #### [facility],[address] [place] [address] 44031 Chloride [Moles/Vol] 103 mmol/L Normal 98 - 107 [facility] Comment on above: Performed By: #### 2 10892 #### [facility],[address] [place] [address] 81868 CMP with eGFR Normal [facility] Comment on above: Result Comment: COMP REHENSIVE METABOLIC PANEL Performed By: #### 2 54201 #### [facility],[address] [place] [address] 58297 CO2 [Moles/Vol] 27.4 mmol/L Normal 21.0 - 32.0 [facility] Comment on above: Performed By: #### 2 62224 #### [facility],[address] [place] [address] 27451 Creatinine [Mass/Vol] 0.87 mg/dL Normal 0.55 - 1.02 [facility] Comment on above: Performed By: #### 2 82162 #### [facility],[address] [place] [address] 93796 GFR/1.73 sq M.predicted among non-blacks MDRD (S/P/Bld) [Vol rate/Area] mL/min/{1.73_m2} Normal 60 - 999 [facility] Comment on above: Performed By: #### 2 31447 #### [facility],[address] [place] [address] 42568 Result Comment: ACCO RDING TO THE NATIONAL KIDNEY DISEASE EDUCATION PROGRAM(NKDE), A NORMAL eGFR IS A VALUE GREATER THAN OR EQUAL TO 60 ML/MIN/1.73 SQ METERS. CHRONIC KIDNEY DISEASE: <60mL/MIN/1.73 SQ METERS KIDNEY FAILURE: <15mL/MIN/1.73 SQ METERS THIS TEST SHOULD ONLY BE USED FOR PATIENTS 18 YEARS OF AGE AND OLDER. Globulin (S) [Mass/Vol] 3.8 g/dL Normal 1.5 - 3.8 [facility] Comment on above: Performed By: #### 2 32352 #### [facility],[address] [place] [address] 78577 Glucose [Mass/Vol] 103 mg/dL Normal 74 - 106 [facility] Comment on above: Performed By: #### 2 56883 #### [facility],[address] [place] [address] 48508 Potassium [Moles/Vol] 4.6 mmol/L Normal 3.5 - 5.1 [facility] Comment on above: Performed By: #### 2 19851 #### [facility],[address] [place] [address] 60484 Protein [Mass/Vol] 7.8 g/dL Normal 6.4 - 8.2 [facility] Comment on above: Performed By: #### 2 23966 #### [facility],[address] [place] [address] 96816 Sodium [Moles/Vol] 140 mmol/L Normal 136 - 145 [facility] Comment on above: Performed By: #### 2 91876 #### [facility],[address] [place] [address] 15153 Urea nitrogen [Mass/Vol] 14 mg/dL Normal 7 - 18 [facility] Comment on above: Performed By: #### 2 81193 #### [facility],[address] [place], [place] [address] HEMOGLOBIN A1C (POM)on 01-30 Glucose [Mass/Vol] 128.4 mg/dL High 0.0 - 0.0 [facility] Comment on above: Result Comment: BLDo HEMOGLOBIN A1C REFERENCE RANGESBLDo Suggested Diagnosis HbA1c(%) HbA1C (mmol/mol Diabetic >/=6.5 >/=48 Prediabetes 5.7 - 6.4 39 - 47 Normal <5.7 <39 Performed By: #### 2 67606 #### [facility],[address] [place] [address] 98605 HbA1c (Bld) [Mass fraction] 6.1 % Normal 0.0 - 6.5 [facility] Comment on above: Performed By: #### 2 01981 #### [facility],[address] [place] [address] 97496 LIPID PROFILEon 01-31-2024 Cholesterol [Mass/Vol] 214 mg/dL Normal 0 - 240 [facility] Comment on above: Performed By: #### 2 46823 #### [facility],[address],[place] [address] Cholesterol in HDL [Mass/Vol] 60 mg/dL Normal 40 - 60 [facility] Comment on above: Performed By: #### 2 71646 #### [facility],[address] [place] [address] 69678 Cholesterol in LDL [Mass/Vol] 130 mg/dL High 0 - 129 [facility] Comment on above: Performed By: #### 2 79549 #### [facility],[address] [place] [address] 17487 Cholesterol.total/Chol esterol in HDL [Mass ratio] 3.6 {ratio} Normal 0.0 - 5.0 [facility] Comment on above: Performed By: #### 2 31711 #### [facility],[address] [place] [address] 93381 [address]id [address] [facility] Comment on above: Result Comment: LIPI D PROFILE Performed By: #### 2 29546 #### [facility],[address] [place] [address] 52168 Triglyceride [Mass/Vol] 122 mg/dL Normal 0 - 150 [facility] Comment on above: Performed By: #### 2 35931 #### [facility],[address] [place] [address] 19156 TSHon 01-31-2024 TSH Qn 0.71 m[IU]/L Normal 0.35 - 3.74 [facility] Comment on above: Performed By: #### 2 61358 #### [facility],[address] [place] [address] 17557 URINALYSISon 01-31-2024 Amorphous NONE Normal [facility] Comment on above: Performed By: #### 2 05207 #### [facility],[address] [place] [address] 50812 Bacteria NONE Normal [facility] Comment on above: Performed By: #### 2 93294 #### [facility],[address] [place] [address] 01906 Bilirubin Ql (U) Negative Normal NORMAL: NEGATIVE [facility] Comment on above: Performed By: #### 2 31133 #### [facility],[address] [place] [address] 75451 Casts NONE Normal [facility] Comment on above: Performed By: #### 2 87358 #### [facility],[address] [place] [address] 41785 Clarity (U) clear Normal NORMAL: CLEAR [facility] Comment on above: Performed By: #### 2 89965 #### [facility],[address] [place] [address] 09500 Color (U) yellow Normal NORMAL: YELLOW [facility] Comment on above: Performed By: #### 2 48804 #### [facility],[address] [place] [address] 13814 Crystals LM Nom (Urine sed) NONE Normal [facility] Comment on above: Performed By: #### 2 06863 #### [facility],[address] [place] [address] 06554 Epi Cells OCC Normal [facility] Comment on above: Performed By: #### 2 67738 #### [facility],[address] [place] [address] 83543 Glucose Ql (U) NORM Normal NORMAL: NORMAL [facility] Comment on above: Performed By: #### 2 89752 #### [facility],[address] [place] [address] 67954 Hemoglobin Ql (U) 10 Abnormal NORMAL: NEGATIVE [facility] Comment on above: Performed By: #### 2 34337 #### [facility],[address] [place] [address] 55196 Ketone Negative Normal NORMAL: NEGATIVE [facility] Comment on above: Performed By: #### 2 32574 #### [facility],[address] [place] [address] 84181 Leukocytes Negative Normal NORMAL: NEGATIVE [facility] Comment on above: Performed By: #### 2 15770 #### [facility],[address] [place] [address] Mucous NONE Normal [facility] Comment on above: Performed By: #### 2 88515 #### [facility],[address] [place], [place] [address] Nitrite Ql (U) Negative Normal NORMAL: NEGATIVE [facility] Comment on above: Performed By: #### 2 22919 #### [facility],[address] [place] [address] pH (U) 6 [pH] Normal NORMAL: 5.0-8.0 [facility] Comment on above: Performed By: #### 2 03549 #### [facility],[address] [place] [address] Protein Ql (U) Negative Normal NORMAL: NEGATIVE [facility] Comment on above: Performed By: #### 2 53445 #### [facility],[address] [place] [address] Rbc 0-5 Normal 0-3/hpf [facility] Comment on above: Performed By: #### 2 16825 #### [facility],[address] [place] [address] Sp [place] 1.020 Normal NORMAL: 1.010-1.030 [facility] Comment on above: Performed By: #### 2 19633 #### [facility],[address] [place] [address] Specimen Type R Normal [facility] Comment on above: Performed By: #### 2 73188 #### [facility],[address] [place] [address] Urinalysis dipstick W Reflex Microscopic panel (U) SEE BELOW Normal [facility] Comment on above: Result Comment: MICR OSCOPIC Performed By: #### 2 72152 #### [facility],[address] [place] [address] Urobilinog NORM Normal NORMAL: NORMAL [facility] Comment on above: Performed By: #### 2 42854 #### [facility],[address] [place] [address] 63541 Wbc NONE Normal 0-5/hpf [facility] Comment on above: Performed By: #### 2 20010 #### [facility],[address] [place] [address] 71849 Yeast NONE Normal [facility] Comment on above: Performed By: #### 2 80969 #### [facility],[address] [place] [address] 60981 Metalizing Machine Operator Office Visit Reporton 01-25-2024 Metalizing Machine Operator Office Visit Report [facility] [address], [address] [place] [address] OFFICE VISIT Date of Service: 01/25/24 MR#: [id number] Acct: [id number] Name: IMANI HASTINGS Rep #: [id number] : 1960 Provider: Dr. Jaymie desai MD Age/Sex: 63/F [place] [facility] Status: Signed Intake Vital Signs 12/13/23 08:31 12/19/23 12:01 01/25/24 15:02 Height 5 ft 4 in 5 ft 4 in 5 ft 4 in Weight: 209 lb BMI 35.9 BP 147/71 H Blood Pressure Location Rt brachial Position Sitting Intake Visit Reasons: Surgical consult per Is patient in pain?: No Feel stressed/tense/nervous /anxious/difficulty sleeping: to some extent (works 2 jobs) Allergies No Known Allergies Allergy (Verified 01/25/24 15:02) Medications ???Medication ???Instructions ???Recorded ???Confirmed ???Type aspirin 81 mg chewable tablet PO 08/24/17 01/25/24 History calcium citrate 250 mg PO ONCE 08/24/17 01/25/24 History coenzyme Q10 100 mg capsule 100 mg PO QDAY 08/24/17 01/25/24 History labetalol 200 mg tablet 200 mg PO BID 08/24/17 01/25/24 History lisinopril 5 mg tablet 5 mg PO QDAY 08/24/17 01/25/24 History multivitamin 1 cap PO QAM 08/24/17 01/25/24 History pravastatin 40 mg tablet 40 mg PO QHS 08/24/17 01/25/24 History norethindrone acetate 5 mg tablet 5 mg PO .COMPLEX #10 tabs 12/13/23 01/25/24 Rx Patient : No : No PFSH Medical History (Updated 01/26/24 @ 12:[address] Jaymie Feliciano MD) Hyperlipidemia Hypertension Surgical History (Updated 01/25/24 @ 15:06 by Sunitha Morris) H/O cataract removal with insertion of prosthetic lens H/O: S/P dilation and curettage S/P cholecystectomy Family History Father Hypertension Sister Hypertension Aneurysm Mother Hyperlipidemia Social History (Updated 01/25/24 @ 15:08 by Sunitha Morris) current occupational status: employed current occupation: [employer] Smoking Status: Former smoker alcohol intake: current details: occasionally substance use type: does not use caffeine: Yes what type of physical activity do you participate in: none seatbelt use: always do you feel safe at home: Yes additional social history: - [employer] 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 she isn't having any bleeding or discharge right now she is doing well no complaints. she denies any pelvic pain or pressure. Female Reproductive History Menopausal Symptoms: No night sweats History 3 Elective abortions Hx Para 2 Spontaneous abortions 1 Hx # Term Pregnancies Ectopic pregnancies Hx # Pregnancies Multiple births 1 # of living children Past Pregnancies Del. Date Name GA/Weeks Outcome Route Bth Weight Infant Gen Labor Lgth Anesthesia Del Locatn Provider FOB Unknown Apoorva and Becki-2005 Unknown 42 weeks jhonathan stillbirth Delivery Date: Last Updated by: Kari Choe First child was stillborn ROS Const Constitutional: Denies fatigue, night sweats, weight gain or weight loss ENT ENT: Reports system reviewed and no additional complaints, except as documented Cardio Card: Denies chest pain Resp Resp: Denies cough or dyspnea GI GI: Reports as per HPI; Denies abdominal pain, constipation, nausea or vomiting : Denies nipple discharge, urinary frequency, urinary incontinence, urinary hesitancy, urinary urgency, vaginal discharge, vaginal dryness, vaginal odor or vaginal pruritus Musc Musc: Denies arthralgias, back pain or muscle weakness Skin Skin/Breast: Denies alopecia, change in hair, dry skin, breast mass, breast pain, breast skin changes or nipple discharge Neuro Neuro: Reports system reviewed and no additional complaints, except as documented Psych Psych: Reports system reviewed and no additional complaints, except as documented Endo Endo: Denies cold intolerance, excessive sweating, heat intolerance or polydipsia Khris/Lymph Hematologic/Lymphatic: Denies easy bleeding, Denies easy bruising and Denies lymphadenopathy Exam Const General: cooperative, healthy appearing, comfortable and no acute distress Orientation: alert HENMT Head: normal to inspection and normocephalic Ears: hearing grossly normal bilaterally and external ears normal Nose: external nose normal and nares normal Face and sinus: normal facial exam Neck Neck: normal visual inspection and no lymphadenopathy Thyroid: thyroid normal Chest Chest palpation inspection: normal in (more content not included)... Normal [facility] HbA1c (Bld)on 01-16-2023 Average glucose Estimated from glycated hemoglobin (Bld) [Mass/Vol] 111 mg/dL Normal [facility] Comment on above: Order Comment: Lynnette gao Type: BLOOD SPECIMEN Ordering Facility: [facility] Address: [address] [place] [address] Result Comment: eAG: (Estimated average glucose) is a calculated value from HgbA1c and is rental sales representative of the average blood glucose level in the last 2-3 month period. Performed By: #### 5 [id number] #### [facility] CLIA [id number] [address] [place] [address] [place] HbA1c (Bld) [Mass fraction] 5.5 % Normal 4.3-5.6 [facility] Comment on above: Order Comment: Lynnette gao Type: BLOOD SPECIMEN Ordering Facility: [facility] Address: [address] [place] [address] Result Comment: Amer [place] Diabetes Association guidelines indicate that patients with HgbA1c in the range 5.7-6.4% are at increased risk for development of diabetes, and intervention by lifestyle modification may be beneficial. HgbA1c greater or equal to 6.5% is considered diagnostic of diabetes. Performed By: #### 5 5454-3 #### [facility] CLIA [id number] STATES OF [facility] Cervical or vagninal specime n microscopic examination by cytology stain (reported asOrdered By: Sunitha Guaman on 12-06-2022 Cytology report Cyto stain Doc (Cvx/Vag) Comment . [facility] Comment on above: The Pap smear is a s creening test designed to aid in thedetection of premalignant and malignant conditions of theuterine cervix. It is not a diagnostic procedure andshould not be used as the sole means of detecting cervicalcancer. Both false-positive and false-negative reports dooccur. Detection in cervical specim en of any of human papilloma virus (HPV) 16, 18, 31, 33,Ordered By: Sunitha Guaman on 12-06-2022 HPV 16+18+31+33+35+39+45+5 1+52+56+58+59+66+68 DNA Probe+sig amp Ql (Cvx) Negative Negative [facility] Comment on above: This nucleic acid am plification test detects fourteen high- risk HPV types (16,18,31,33,35,39,45,51,52,56,58,59,66,68)without differentiation. Laboratory - CytologyOrdered By: Sunitha Guaman on 12-06-2022 Medical Sales Associate Cyto stain Nom (Cvx/Vag) [ID] Comment . [facility] Comment on above: Latrice Mcghee, Cyt otechnologist (ASCP) Laboratory - Miscellaneous t estsOrdered By: Sunitha Guaman on 12-06-2022 Service comment (Unsp spec) [Interp] Comment . [facility] Comment on above: This liquid based Th inPrep(R) pap test was screened withthe use of an image guided system. Service comment (Unsp spec) [Interp] . . [facility] Liquid-based cerv Pap + CT/G C by LALITHA w reflex to high-risk HPV for ASCUSOrdered By: Sunitha Guaman on 12-06-2022 Cytology report Cyto stain.thin prep Doc (Cvx/Vag) Comment . [facility] Comment on above: Criteria not met, HP V Genotype not performed.Performed at: [facility] [id number] Director: Meenakshi Springer MD, Phone: [phone] at: [address] [id number] Director: Cori Flores MD, Phone: [phone] at: =[address] [id number] Director: Cori Flores MD, Phone: [phone] No Panel InformationOrdered By: Sunitha Guaman on 12-06-2022 Pathology report final diagnosis Narrative Comment . [facility] Comment on above: NEGATIVE FOR INTRAEP ITHELIAL LESION OR MALIGNANCY. Follicle Stimulating Hormone 29.4 mIU/mL [facility] Comment on above: NORMAL REFERENCE RAN GES FEMALE FOLLICULAR 2.3 - 12.6 mIU/mL MID-CYCLE PEAK 5.2 - 17.5 mIU/mL LUTEAL 1.7 - 12.9 mIU/mL POST-MENOPAUSAL ON MHT 5.9 - 72.8 mIU/mL NOT ON MHT 12.7 - 132.2 mlU/mL MALE 0.7 - 10.8 mIU/mL Serum or plasma estradiol (E 2) measurement (mass/volume)Ordered By: Sunitha Guaman on 12-06-2022 E2 [Mass/Vol] 15.6 pg/mL [facility] Comment on above: NORMAL REFERENCE RAN GES FEMALE FOLLICULAR 21.4 - 164.8 pg/mL MID-CYCLE PEAK 49.9 - 367.2 pg/mL LUTEAL 40.2 - 259.0 pg/mL POST-MENOPAUSAL ON MHT <11.0 - 462.1 pg/mL NOT ON MHT <11.0 - 58.3 pg/mL MALE <11.0 - 52.5 pg/mL NOTE:[employer] HAS CONFIRMED THE DRUG FULVETRANT (FASLODEX) MAY CAUSE FALSELY ELEVATED ESTRADIOL RESULTS WHEN USING THIS TEST METHOD. IF PATIENT IS TAKING FULVESTRANT AN ALTERNATIVE METHOD SHOULD BE USED TO DETERMINE ESTRADIOL CONCENTRATION. Hemoglobin A1con 12-12-2020 Glucose [Mass/Vol] 120 mg/dL Normal [facility] Comment on above: Performed By: #### H BA1C #### [facility] Routine Lab [address] [place], [place] [id number] HbA1c (Bld) [Mass fraction] 5.8 % High 4.3-5.6 [facility] Comment on above: Performed By: #### H BA1C #### [facility] Routine Lab [address] [place], [place] [address] Vital Signs Date Time Vital Sign Value Performing Clinician Romi duenas 12-17-2024 15:06-0400 Body height 162.[address] Rosetta Bills MD Work Phone: [facility] 12-17-2024 15:06-0400 Body mass index (BMI) [Ratio] 37.3 kg/m2 Dr. Rosetta Bills MD Work Phone: [facility] 12-17-2024 15:06-0400 Body weight 98.[address] Rosetta Bills MD Work Phone: [facility] 12-17-2024 15:06-0400 Diastolic blood pressure 68 mm[Hg] Dr. Rosetta Bills MD Work Phone: [facility] 12-17-2024 15:06-0400 Systolic blood pressure 155 mm[Hg] Dr. Rosetta Bills MD Work Phone: [facility] 09-01-2024 15:23-0400 Body height 162.[address] Rosetta Bills MD Work Phone: [facility] 09-01-2024 15:23-0400 Body mass index (BMI) [Ratio] 36.1 kg/m2 Dr. Rosetta Bills MD Work Phone: [facility] 09-01-2024 15:23-0400 Body weight 95.[address] Rosetta Bills MD Work Phone: [facility] 09-01-2024 15:23-0400 Diastolic blood pressure 76 mm[Hg] Dr. Rosetta Bills MD Work Phone: [facility] 09-01-2024 15:23-0400 Systolic blood pressure 154 mm[Hg] Dr. Rosetta Bills MD Work Phone: [facility] 12-06-2022 09:27-0400 Body height 162.[address] Rosetta Bills Work Phone: [facility] 12-06-2022 09:21-0400 Body mass index (BMI) [Ratio] 32.7 kg/m2 Dr. Rosetta Bills Work Phone: [facility] 12-06-2022 09:21-0400 Body weight 86.[address] Rosetta Bills Work Phone: [facility] 12-06-2022 09:21-0400 Diastolic blood pressure 78 mm[Hg] Dr. Rosetta Bills Work Phone: [facility] 12-06-2022 09:21-0400 Systolic blood pressure 130 mm[Hg] Dr. Rosetta Bills Work Phone: [facility] 11-30-2021 08:55-0400 Body height 162.56 cm [employer] Sunitharosemary Coronados [employer] Work Phone: [facility] Work Phone: 11-30-2021 08:55-0400 Body mass index (BMI) [Ratio] 37.5 kg/m2 [employer] Sunitha Rowena [employer] Work Phone: [facility] Work Phone: 11-30-2021 08:55-0400 Body weight 99.39 kg [employer]-C Sunitha [place] [employer] Work Phone: [facility] Work Phone: 11-30-2021 08:55-0400 Diastolic blood pressure 80 mm[Hg] [employer] Sunitha Coronados [employer] Work Phone: [facility] Work Phone: 11-30-2021 08:55-0400 Systolic blood pressure 136 mm[Hg] [employer] Sunitha Coronados [employer] Work Phone: [facility] Work Phone: Encounters Encounter Date Encounter Type Care Provider Facility Start: 12-17-2024 End: 12-17-2024 Patient encounter procedure Rita MORENO -[facility] Work Phone: Start: 12-17-2024 End: 12-17-2024 Patient encounter status Rita Leary NP-C [facility] Start: 12-17-2024 End: 12-17-2024 ambulatory Rita Leary Facility:[facility] Start: 12-17-2024 Patient encounter procedure Rita MORENO -[facility] Work Phone: Start: 09-01-2024 End: 09-01-[address] Rosetta Bills MD Work Phone: [facility] Work Phone: Start: 09-01-2024 End: 09-01-[address] Jaymie Feliciano MD -Laboratory, Specimen Work Phone: Start: 09-01-2024 End: 09-01-[address] Jaymie Feliciano MD -[facility] Work Phone: Start: 09-01-2024 End: 09-01-2024 ambulatory Rosetta Bills Facility:[facility] Start: 09-01-2024 End: 09-01-2024 ambulatory Jaymie Feliciano Facility:[facility] Start: 07-23-2024 End: 07-23-2024 ambulatory MOSES MEDEIROS [facility] Start: 02-25-2024 End: 02-25-2024 ambulatory Rosetta Bills Facility:[facility] Start: 02-12-2024 End: 02-12-2024 ambulatory [facility] Facility:[facility] Start: 02-12-2024 ambulatory Rosetta Bills Facility:[facility] Start: 01-31-2024 Encounter for genera l adult medical examination without abnormal findings ROSETTA BAKER [facility] Start: 01-31-2024 End: 01-31-2024 ambulatory ROSETTA BAKER [facility] Start: 01-25-2024 End: 01-25-2024 ambulatory Jaymie Feliciano Facility:[facility] Start: 12-06-2022 End: 12-06-[address] Rosetta Bills Work Phone: [facility] Work Phone: Start: 12-06-2022 End: 12-06-[address] Rosetta Bills Work Phone: [facility] Work Phone: Start: 11-30-2021 End: 11-30-2021 Patient encounter procedure [employer] Sunitha Guaman [employer] Work Phone: [facility] Procedures Date Procedure Procedure Detail Performing Clinician Start: 12-17-2024 Screening mammography Margarita Bills MD Work Phone: Start: 01-31-2024 Urinalysis MOSES SOSA AND Comment on above: Result Comment: URIN ALYSIS Performed By: #### 2 [id number] #### [facility],[address] [address] Start: 12-06-2022 Screening mammography Margarita Bills Work Phone: Start: 11-30-2021 Screening mammography N P-C Sunitha Guaman [employer] Work Phone: Plan of Treatment Date Care Activity Detail Author US Pelvis [facility] US Pelvis transvaginal [facility] Payers Date Payer Category Payer Private Health Insurance [id number] 2023 Self-pay [id number] 2021 Unknown [id number] 1960 Unknown [id number] 2.16.8 [id number] 1960 Unknown [id number] 2.16.8 [id number] 1959 Unknown [id number] 2.16.8 [id number] Unknown [id number] Unknown [id number] 2.16.8 [id number] Unknown [id number] 2.16.8 [id number] Unknown [id number] 2.16.8 [id number] Unknown [id number] 2.16.8 [id number] Unknown [id number] 2.16.8 [id number] Unknown [id number] 2.16.8 [id number] Unknown [id number] 2.16.8 [id number] Unknown [id number] 2.16.8 [id number] Social History Date Type Detail Facility Start: 11-30-2021 End: 12-06-2022 Tobacco smoking status NHIS Unknown if ever smoked [facility] Start: 1960 Sex Assigned At Female [facility] Start: 02-25-2024 [facility] Start: 09-04-2024 Sex Female (finding) [facility] Evaluation note 09-01-2024 Note Date & Type Note Facility 09-01-2024 Evaluation note Diagnosis Onset Date Resolution Simple endometrial hyperplasia without atypia acute September 01, 2024 3:07pm [facility] Work Phone: Evaluation note 09-01-2024 Note Date & Type Note Facility 09-01-2024 Evaluation note Diagnosis Onset Date Resolution Simple endometrial hyperplasia without atypia acute September 01, 2024 3:07pm Encounter for routine gynecological examination noneactive December 17, 2024 2:57pm [facility] Work Phone: Clinical Note 02-12-2024 Note Date & Type Note Facility 02-12-2024 Note [facility] Medical Records Department [address] [place] [address] History Physical Exam 02/12/24623 MR#: [id number] Acct: [id number] Name: IMANI HASTINGS Rep #: [id number] : 1960 63 From: Jaymie Feliciano MD PCP: Dr. Rosetta Bills MD Status:[facility] Location: [place] [address] History and Physical Date of Admission: 02/12/24 Intake Vital Signs 12/13/2407:31 12/19/2411:01 01/24/2415:02 Height 5 ft 4 in 5 ft 4 in 5 ft 4 in Weight: 209 lb BMI 35.9 BP 147/71 H Blood Pressure Location Rt brachial Position Sitting Intake Visit Reasons: Surgical consult per Is patient in pain?: No Feel stressed/tense/nervous/anxious/difficulty sleeping: to some extent (works 2 jobs) Allergies No Known Allergies Allergy (Verified 01/25/24 15:02) Medications ???Medication ???Instructions ???Recorded ???Confirmed ???Type aspirin 81 mg chewable tablet PO 08/24/17 01/25/24 History calcium citrate 250 mg PO ONCE 08/24/17 01/25/24 History coenzyme Q10 100 mg capsule 100 mg PO QDAY 08/24/17 01/25/24 History labetalol 200 mg tablet 200 mg PO BID 08/24/17 01/25/24 History lisinopril 5 mg tablet 5 mg PO QDAY 08/24/17 01/25/24 History multivitamin 1 cap PO QAM 08/24/17 01/25/24 History pravastatin 40 mg tablet 40 mg PO QHS 08/24/17 01/25/24 History norethindrone acetate 5 mg tablet 5 mg PO .COMPLEX #10 tabs 12/13/23 01/25/24 Rx Patient : No : No PFSH Medical History (Updated 01/26/24 @ 12:[address] Jaymie Feliciano MD) Hyperlipidemia Hypertension Surgical History (Updated 01/25/24 @ 15:06 by Sunitha Morris) H/O cataract removal with insertion of prosthetic lens H/O: S/P dilation and curettage S/P cholecystectomy Family History Father HypertensionSister Hypertension AneurysmMother Hyperlipidemia Social History (Updated 01/25/24 @ 15:08 by Sunitha Morris) current occupational status: employed current occupation: [employer] Smoking Status: Former smoker alcohol intake: current details: occasionally substance use type: does not use caffeine: Yes what type of physical activity do you participate in: none seatbelt use: always do you feel safe at home: Yes additional social history: - [employer] 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 she isn't having any bleeding or discharge right now she is doing well no complaints. she denies any pelvic pain or pressure. Female Reproductive History Menopausal Symptoms: No night sweats History 3 Elective abortions Hx Para 2 Spontaneous abortions 1 Hx # Term Pregnancies Ectopic pregnancies Hx # Pregnancies Multiple births 1 # of living children Past Pregnancies Del. Date Name GA/Weeks Outcome Route Bth Weight Infant Gen Labor Lgth Anesthesia Del Locatn Provider FOB Unknown Dawna-2005 Unknown 42 weeks jhonathan stillbirth Delivery Date: Last Updated by: Kari Choe First child was stillborn ROS Const Constitutional: Denies fatigue, night sweats, weight gain or weight loss ENT ENT: Reports system reviewed and no additional complaints, except as documented Cardio Card: Denies chest pain Resp Resp: Denies cough or dyspnea GI GI: Reports as per HPI; Denies abdominal pain, constipation, nausea or vomiting : Denies nipple discharge, urinary frequency, urinary incontinence, urinary hesitancy, urinary urgency, vaginal discharge, vaginal dryness, vaginal odor or vaginal pruritus Musc Musc: Denies arthralgias, back pain or muscle weakness Skin Skin/Breast: Denies alopecia, change in hair, dry skin, breast mass, breast pain, breast skin changes or nipple discharge Neuro Neuro: Reports system reviewed and no additional complaints, except as documented Psych Psych: Reports system reviewed and no additional complaints, except as documented Endo Endo: Denies cold intolerance, excessive sweating, heat intolerance or polydipsia Khris/Lymph Hematologic/Lymphatic: Denies easy bleeding, Denies easy bruising and Denies lymphadenopathy Exam Const General: cooperative, healthy appearing, comfortable and no acute distress Orientation: alert HENMT Head: normal to inspection and normocephalic Ears: hearing grossly normal bilaterally and external ears normal Nose: external nose normal and nares normal Face and sinus: normal facial exam Neck Neck: normal visual inspection and no lymphadenopathy Thyroid: thyroid normal Chest Chest palpat (more content not included)... [facility] Clinical Note 12-06-2022 Note Date & Type Note Facility 12-06-2022 Note [facility] Pap Smear Specimen Adequacy December 06, 2022 12:47pm Comment . Satisfactory for evaluation. Endocervical and/or squamous metaplasticcells (endocervical component) are present. Comment on above: Satisfactory for mouna luation. Endocervical and/or squamous metaplasticcells (endocervical component) are present. Evaluation note Note Date & Type Note Facility Evaluation note Diagnosis Onset Date History of postmenopausal bleeding acute Encounter for routine gyneco logical examination noneactive [facility] Work Phone: Reason for referral (narrative) Note Date & Type Note Facility Reason for referral (narrative) No reason for referral information available [facility] Work Phone: Summary Purpose Family History Relationship Condition Age at Onset Recorded Date/T fab father Hypertension Unknown sister Hypertension Unknown Aneurysm Unknown mother Hyperlipidemia Unknown Advance Directives Advance Directive Response Recorded Date/ Time Living Will No February 25, 2024 4:06pm Do you have a Healthcare Power of Pain Management Nurse? 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 Reason for Visit History of postmenop ausal bleeding Encounter for routine gynecological examination Chief Complaint Admit Date September 01, 2024 3:07 pm Reason for Visit Admit Date Simple endometrial hyperplasia without a typia September 01, 2024 3:07pm Chief Complaint Admit Date emb September 01, 2024 3:07 pm Breast Cancer Screening December 17, 2024 1:25pm 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) December 17, 2024 2:57 pm Reason for Visit Admit Date Simple endometrial hyperplasia without a typia September 01, 2024 3:07pm Encounter for routine gynecological exam ination December 17, 2024 2:57pm Additional Source Comments INFORMATION SOURCE (unrecogn ized section and content) DATE CREATED AUTHOR 12/12/2020 [facility] DATE CREATED AUTHOR AUTHOR'S ORGANIZ ATION 01/18/2023 [facility] DATE CREATED AUTHOR AUTHOR'S ORGANIZ ATION 07/24/2024 [facility] DATE CREATED AUTHOR AUTHOR'S ORGANIZ ATION 12/17/2024 [facility] Goals (unrecognized section and content) Goals may be documented in a n alternate sectionGoals may be documented in an alternate sectionGoals may be documented in an alternate sectionGoals may be documented in an alternate section Care Teams (unrecognized sec tion and content) Team Status: Active Member Role Status Dates Dr. Rosetta Bills MD Family Provider Active Dr. Rosetta Bills MD Primary Care Provider Active Team Status: Inactive Member Role Status Dates Dr. Rosetta Bills MD Primary Care Provider, Referring Provider Active Sunitha Guaman NP, NP-Ignacia Attending Provider Active Team Status: Inactive Member Role Status Dates Dr. Rosetta Bills MD Primary Care Provider Active Sunitha Guaman NP, NP-C Attending Provider, Referring Provider Active Team Status: Inactive Member Role Status Dates Dr. Rosetta Bills MD Primary Care Provider Active Start: September 01, 2024 End: September 01, 2024 Dr. Rosetta Bills MD Referring Provider Active Start: September 01, 2024 End: September 01, 2024 Dr. Jaymie Feliciano MD Attending Provider Active Start: September 01, 2024 End: September 01, 2024 Team Status: Inactive Member Role Status Dates Dr. Rosetta Bills MD Primary Care Provider Active Start: September 01, 2024 End: September 01, 2024 Dr. Jaymie Feliciano MD Attending Provider Active Start: September 01, 2024 End: September 01, 2024 Team Status: Active Member Role/Relationship Status Dates Dr. Rosetta Bills MD Primary Care Provider Active Team Status: Inactive Member Role/Relationship Status Dates Dr. Rosetta Bills MD Primary Care Provider Active Start: September 01, 2024 End: September 01, 2024 Dr. Rosetta Bills MD Referring Provider Active Start: September 01, 2024 End: September 01, 2024 Dr. Jaymie Feliciano MD Attending Provider Active Start: September 01, 2024 End: September 01, 2024 Team Status: Inactive Member Role/Relationship Status Dates Dr. Rosetta Bills MD Primary Care Provider Active Start: September 01, 2024 End: September 01, 2024 Dr. Jaymie Feliciano MD Attending Provider Active Start: September 01, 2024 End: September 01, 2024 Team Status: Active Member Role/Relationship Status Dates Dr. Rosetta Bills MD Primary Care Provider Active Start: December 17, 2024 JOSH Devi Attending Provider Active Start: December 17, 2024 JOSH Devi Referring Provider Active Start: December 17, 2024 Team Status: Inactive Member Role/Relationship Status Dates Dr. Rosetta Bills MD Primary Care Provider Active Start: December 17, 2024 End: December 17, 2024 Dr. Rosetta Bills MD Referring Provider Active Start: December 17, 2024 End: December 17, 2024 JOSH Devi Attending Provider Active Start: December 17, 2024 End: December 17, 2024 FOR RECORDS PERTAINING TO PATIENTS WHO ARE OR HAVE BEEN ENROLLED IN A CHEMICAL DEPENDENCY/SUBSTANCEABUSE PROGRAM, SOME INFORMATION MAY BE OMITTED. This clinical summary was aggregated from multiple sources. Caution should be exercised in using it in the provision of clinical care. This summary normalizes information from multiple sources, and as a consequence, information in this document may materially change the coding, format and clinical context of patient data. In addition, data may be omitted in some cases. CLINICAL DECISIONS SHOULD BE BASED ON THE PRIMARY CLINICAL RECORDS. [facility]. provides no warranty or guarantee of the accuracy or completeness of information in this document.
== END | disposition home or self-care (01) ==
LOC: OPBI 13:31
PROVIDERS: PCP Internal Medicine Infectious Disease; Referring Provider Nurse Practitioner Family; Visit Provider Nurse Practitioner Family
DX: Z12.31 Encounter for screening mammogram for malignant neoplasm of breast (principal)
CPT/HCPCS: 77063; 77067

== ENCOUNTER → 2025-01-08 | Outpatient (CLI) | payer OTHER, SELFPAY ==
--- NOTE | 2025-01-08 15:00 | BD_ITS ---
PROCEDURE: DEXA BONE DENSITY STUDY 01/08/2025 REASON FOR EXAM: POSTMENOPAUSAL F, age 64 y/o . Postmenopausal. TECHNIQUE: DEXA BONE DENSITY STUDY COMPARISON: None FINDINGS: BMD and T-SCORES Lumbar spine: 1.111 g/cm2, T-score 0.6 Levels: L1 through L4 Left femoral neck: 0.814 g/cm2, T-score -0.3 Femoral neck comparison data not recommended for monitoring change. Left total hip: 0.959 g/cm2, T-score 0.1 Right femoral neck: 0.824 g/cm2, T-score -0.2 Femoral neck comparison data not recommended for monitoring change. Right total hip: 1.002 g/cm2, T-score 0.5 The World Health Organization has defined the following categories based on bone density: Normal bone density: T-score equal to or greater than -1.0 Osteopenia: T-score between -1.0 and -2.5 Osteoporosis: T-score equal to or less than -2.5 The patient does meet the pharmacological treatment recommendations for prevention of osteoporosis. BD/Dexa Bone Density Study IMPRESSION: NORMAL T-SCORES. Recommend follow-up as clinically warranted. Reading Location: [place] [id number]
== END | disposition home or self-care (01) ==
PROVIDERS: PCP Internal Medicine Infectious Disease; Referring Provider Nurse Practitioner Family; Visit Provider Nurse Practitioner Family
DX: Z78.0 Asymptomatic menopausal state (principal)
CPT/HCPCS: 77080

== ENCOUNTER → 2025-03-02 | Outpatient (CLI) | payer OTHER, SELFPAY ==
--- NOTE | 2025-03-02 16:05 | EMB_PTH ---
PATIENT: IMANI HASTINGS [facility]: [facility] U#:[id number] AGE/SX: 64/F ROOM: RE03/02/[address]: Dr. Jaymie Feliciano MD : 1960 BED: DIS: 03/02/2025 SPEC #: [id number] RECD: 03/02/25 16:40 STATUS: ADRIEL REQ #: [id number] YAEL: 03/02/25 16:[address]: Jaymie Feliciano DEPT: SURGICAL PATHOLOGY RECD BY: Dayna Watkins ENTERED: 03/03/25 08:32 SP TYPE: ENDOM BX/C JACOB DR: Dr. Jian Preston MD Tissues: Endometrium, NOS Procedures: Surgery Specimen Level IV HEADER OPERATION: Endometrial biopsy PRE-OP DIAGNOSIS: Simple endometrial hyperplasia with out atypia TISSUE SUBMITTED: A- Endometrial tissue MICROSCOPIC DIAGNOSIS A. Endometrium, biopsy: * Scant superficial epithelium - see note. Note: Very scant tissue is present which may be insufficient for evaluation of the endometrium. A single strip of bland epithelium is observed. Recommend clinical correlation. MICROSCOPIC DESCRIPTION Slides are reviewed. GROSS DESCRIPTION A. Received in formalin labeled with the patient's name and date of . Designated as " EMB" are minute flecks of apparent tissue free-floating within the container. Entirely submitted in 1 cassette, for cellblock preparation. GA 03/03/2025 CPT:56064
== END | disposition home or self-care (01) ==
LOC: LABSPEC 16:27
PROVIDERS: PCP Internal Medicine Infectious Disease; Referring Provider Obstetrics & Gynecology; Visit Provider Obstetrics & Gynecology
DX: N85.00 Endometrial hyperplasia, unspecified (principal)
CPT/HCPCS: 88305